=== PATIENT | female | born 1950 | race Caucasian/White ===

== ENCOUNTER → 2017-11-09 08:24 | Outpatient (CLI) | payer MEDICARE, OTHER, SELFPAY ==
[2017-11-09 10:39] LABS: Alanine Aminotransferase 40 IU/L (9-52); Albumin 3.8 g/dL (3.5-5.0); Albumin Globulin Ratio 1.4 (1.0-2.8); Alkaline Phosphatase 105 U/L (38-126); Aspartate Aminotransferase 23 IU/L (14-36); Bilirubin Total 0.7 mg/dL (0.2-1.3); Blood Urea Nitrogen 18 mg/dL (7-17); Calcium 9.5 mg/dL (8.4-10.2); Carbon Dioxide 31 mmol/L (22-32); Chloride 98 mmol/L (98-107); Cholesterol 164 mg/dL (140-199); Estimated Glomerular Filt Rate > 60.0 mL/min (>60); Globulin 2.7 g/dL (1.7-4.1); Glucose 276 mg/dL (80-110); HDL Cholesterol 68 mg/dL (40-60); HEMOLYSIS < 15 (0-50); LDL Cholesterol Calculated 81 mg/dL (<100); Potassium 4.5 mmol/L (3.4-5.1); Sodium 137 mmol/L (137-145); Total Protein 6.5 g/dL (6.3-8.2); Triglycerides 76 mg/dL (35-150)
[2017-11-09 10:41] LABS: Hemoglobin A1C% w Est Avg Glu 8.4 % (4.0-6.0)
[2017-11-09 11:32] LABS: Creatinine Urine Random 76.8 mg/dL
[2017-11-09 11:36] LABS: Microalbumi Creatinin Ratio Ur 41.6 ug/mg CR (<30); Microalbumin Urine Random 3.2 mg/dL (0-1.6)
== END ==
PROVIDERS: Family Provider Physician Assistant; PCP Physician Assistant; Visit Provider Physician Assistant
DX: E10.8 Type 1 diabetes mellitus with unspecified complications (principal); E10.319 Type 1 diabetes mellitus with unspecified diabetic retinopathy without macular edema; I10 Essential (primary) hypertension; E78.5 Hyperlipidemia, unspecified
CPT/HCPCS: 36415; 80053; 80061; 82043; 82570; 83036

== ENCOUNTER → 2018-04-14 12:14 | Outpatient (CLI) | payer MEDICARE, OTHER, SELFPAY ==
[2018-04-14 13:30] LABS: BUN Creatinine Ratio 23.3 (6-22); Blood Urea Nitrogen 21 mg/dL (7-17); Calcium 9.6 mg/dL (8.4-10.2); Carbon Dioxide 27 mmol/L (22-32); Chloride 97 mmol/L (98-107); Estimated Glomerular Filt Rate > 60.0 mL/min (>60); Glucose 250 mg/dL (80-110); HEMOLYSIS < 15 (0-50); Sodium 138 mmol/L (137-145)
[2018-04-14 13:49] LABS: Potassium 5.6 mmol/L (3.4-5.1)
[2018-04-14 15:51] LABS: Creatinine Urine Random 59.3 mg/dL
[2018-04-14 15:55] LABS: Microalbumi Creatinin Ratio Ur 35.4 ug/mg CR (<30); Microalbumin Urine Random 2.1 mg/dL (0-1.6)
== END ==
PROVIDERS: Family Provider Internal Medicine Endocrinology, Diabetes & Metabolism; PCP Physician Assistant; Visit Provider Physician Assistant
DX: E10.8 Type 1 diabetes mellitus with unspecified complications (principal); I10 Essential (primary) hypertension
CPT/HCPCS: 36415; 80048; 82043; 82570

== ENCOUNTER → 2018-06-19 09:27 | Outpatient (CLI) | payer MEDICARE, OTHER, SELFPAY ==
--- NOTE | 2018-06-19 09:32 | DI.CT.S_ITS ---
PROCEDURE: CT CHEST WO CON INDICATIONS: 1 year follow up pulmonary nodules TECHNIQUE: Noncontrast 2.0-2.5 mm thick sections acquired from the pulmonary apices to the posterior costophrenic angles. 7 mm thick coronal and sagittal MIP reformats were then acquired. A low radiation dose technique was utilized. COMPARISON: [facility], CT, THORAX WITHOUT CONTRAST, 06/20/2017, 10:05. FINDINGS: Image quality: Diagnostic, given the low radiation dose technique. Lungs and pleura: A 3 mm nodule in the right upper lobe (there is 2 image 56) is unchanged. There is a 6 mm nodule in the right lower lobe (image 2 image 105), unchanged in size. There is a 2 mm nodule in the right upper lobe (series 2 image 54), which is new. A 3 mm nodule is noted in the left upper lobe (series 2 image 59), stable. A couple of 4 mm nodules are noted in the lingula (series 2 image 101), also stable. Mediastinum: Heart size is normal. No pericardial effusion. No mediastinal adenopathy by size criteria. Thoracic aorta and central pulmonary arteries are normal in size. Esophagus is normal in caliber. No hiatal hernia. Bones and chest wall: No suspicious bony lesions. No vertebral body compression fractures. No axillary or supraclavicular adenopathy by size criteria. Thyroid gland is normal. Abdomen: Visualized upper abdomen solid organs and bowel loops appear normal in the absence of contrast. IMPRESSION: 1. Multiple pulmonary nodules are present bilaterally, stable compared to the last exam dated 06/20/2017. Please see enclosed followup recommendation. 2. There is a new 2 mm nodule in the right upper lobe. Fleischner Society criteria for SOLID lung nodule followup. Nodule size (mm)Low-risk patientHigh-risk patient<6 (single or multiple)No routine followup.Optional CT at 12 months. 6-8 (single or multiple)CT at 6-12 months, then optional CT at 18-24 mo.CT at 6-12 months, then CT at 18-24 months. >8 (single)CT at 3 months, PET-CT, or biopsy. Same as for low-risk pts. >8 (multiple)CT at 3-6 months, then optional CT at 18-24 mo.CT at 3-6 months, then CT at 18-24 months. Recommendations do not apply to lung cancer screening, patients with immunosuppression, or patients with known primary cancer. Dictated by: Amy Tate M.D. on 06/19/2018 at 10:58 Approved by: Amy Tate M.D. on 06/19/2018 at 11:06
== END ==
PROVIDERS: Family Provider Internal Medicine Endocrinology, Diabetes & Metabolism; PCP Physician Assistant; Visit Provider Physician Assistant
DX: R91.8 Other nonspecific abnormal finding of lung field (principal)
CPT/HCPCS: 71250

== ENCOUNTER → 2018-08-10 08:32 | Outpatient (CLI) | payer MEDICARE, OTHER, SELFPAY ==
[2018-08-10 09:40] LABS: BUN Creatinine Ratio 18.8 (6-22); Blood Urea Nitrogen 15 mg/dL (7-17); Calcium 8.9 mg/dL (8.4-10.2); Carbon Dioxide 27 mmol/L (22-32); Chloride 106 mmol/L (98-107); Estimated Glomerular Filt Rate > 60.0 mL/min (>60); Glucose 181 mg/dL (80-110); HEMOLYSIS < 15 (0-50); Potassium 4.4 mmol/L (3.4-5.1); Sodium 142 mmol/L (137-145)
== END ==
PROVIDERS: PCP Physician Assistant; Visit Provider Physician Assistant
DX: E10.8 Type 1 diabetes mellitus with unspecified complications (principal); E87.5 Hyperkalemia; I10 Essential (primary) hypertension
CPT/HCPCS: 36415; 80048

== ENCOUNTER 2018-08-20 02:12 | Emergency (ER) | payer MEDICARE, OTHER, SELFPAY ==
--- NOTE | 2018-08-20 02:17 | ED.GENADULT ---
HPI - General Adult General Chief complaint: Headache Stated complaint: brain about to explode today Time Seen by Provider: 08/20/18 02:17 Source: patient Mode of arrival: ambulatory Limitations: no limitations History of Present Illness HPI narrative: Patient is a 68-year-old female here for evaluation of headache. She described it as a right-sided posterior headache. No trauma. she states that she started to feel her head hurt in the afternoon. Did not think much of it however couple hours ago the headache worsened. She denies any fevers. No trauma. No other neurologic symptoms. She states she has had headaches in the past but this feels different to her prior headaches. She states that it is right-sided in the back and is throbbing. She states that it is worse when she moves her head to the side and potentially worse with touching the back of her head. No recent upper respiratory infections. no recent sore throat. has not tried anything for symptoms prior to arrival. She has not taken her night dose of blood pressure medication Related Data Home Medications Medication Instructions Recorded Confirmed [BATAXOLOL OPHTHALMIC] 0.5 % OPHTH BID #0 06/01/17 03/21/18 [CALCIUM] PO QDAY #0 06/01/17 03/21/18 [NOVOLOG THRU PUMP] 60 - 80 units SEE INSTRUCTIONS #0 06/01/17 03/21/18 aspirin 81 mg PO QDAY #0 06/01/17 03/21/18 latanoprost [Xalatan] 1 drp OPHTH HS #0 06/01/17 03/21/18 loratadine-pseudoephedrine 1 tab PO QDAYP PRN #0 06/01/17 03/21/18 [Claritin-D 24 Hour] omeprazole 20 mg PO QDAY #0 06/01/17 03/21/18 multivitamin chewable tablet See Rx Instructions PO DAILY 11/16/17 03/21/18 Previous Rx's Medication Instructions Recorded carvedilol [Coreg] 12.5 mg PO BID #180 tab 06/27/17 pneumococcal 13-nanette conj 0.5 ml IM ONCE #0.5 ml 03/21/18 vaccine-dip crm (PF) 0.5 mL IM syringe varicella-zoster glycoE [id number] 0.5 ml IM ONCE #1 each 03/21/18 adj(PF) 50 mcg/0.5 mL IM susp, kit atorvastatin 40 mg tablet 40 mg PO BEDTIME #90 tab 06/26/18 furosemide 20 mg tablet 20 mg PO BID #180 tab 06/26/18 lisinopril 40 mg tablet 40 mg PO QDAY #90 tab 06/26/18 Allergies Allergy/AdvReac Type Severity Reaction Status Date / Time amoxicillin [AMOXICILLIN] Allergy Severe SWELLING Verified 03/21/18 08:53 IN LIPS AND MOUTH aspirin [ASPIRIN] AdvReac Mild (HIGH Verified 03/21/18 08:53 DOSES) HIVES Review of Systems Constitutional Denies fatigue, Denies fever(s) and Reports headache(s) Eyes Denies blind spots, Denies blurry vision and Denies loss of vision ENT Ears, Nose, Mouth, and Throat: Denies vertigo, Denies dizziness, Denies dry mouth, Denies facial pain, Reports headache(s), Reports neck pain (Right-sided posterior), Denies disequilibrium and Denies sore throat Cardiovascular Denies chest pain and Denies dyspnea Respiratory Denies dyspnea Gastrointestinal Gastrointestinal: Denies abdominal pain, Denies nausea and Denies vomiting Musculoskeletal Denies myalgias, Denies arthralgias, Reports neck pain (Right-sided posterior), Denies numbness and Denies tingling Integumentary/Breasts Denies rash Neurologic Denies confusion, Denies vertigo, Denies dizziness, Reports headache(s), Denies focal weakness, Denies loss of vision, Denies numbness, Denies other visual disturbances, Denies convulsions, Denies sensory deficit, Denies tingling, Denies paresthesias and Denies disequilibrium Psychiatric Denies confusion Endocrine Denies fatigue Hematologic/Lymphatic Denies easy bleeding and Denies easy bruising Allergic/Immunologic Denies urticaria [facility] Medical History Allergic rhinitis (Chronic Unknown) Diabetic retinopathy (Chronic 2007) Diverticular disease (Chronic 2015) Glaucoma (Chronic 1984) Hemorrhoids (Chronic 1972) Hypertension (Chronic ~1999) Mild acid reflux (Chronic 2005) Osteopenia (Chronic 2010) Recurrent sinusitis (Chronic Unknown) Type 1 diabetes (Chronic 1977) Abnormal chest x-ray (Resolved 2015) Colon polyps (Resolved 2004) Hepatitis B (Resolved 1972) History of trigger finger (Resolved ~2008) Measles (Resolved ~1958) Mumps (Resolved ~1959) Pneumonia (Resolved 2009) Uterine fibroid (Resolved 1994) Surgical History (Updated 08/30/17 @ 06:14 by Gretchen Ta PA-C) Status post hysterectomy Status post tubal ligation Family History (Updated 06/01/17 @ 00:00 by Gretchen Ta PA-C) Father History of diabetes mellitus, type I Mother History of diabetes mellitus, type II History of heart disease Sister History of diabetes mellitus, type II Grandfather No problems noted. Grandmother No problems noted. Grandmother No problems noted. Social History Smoking Status: Never smoker second hand exposure: No alcohol intake: current (1 to 2 glasses of wine almost nightly.) substance use type: does not use Family History (Updated 06/01/17 @ 00:00 by Gretchen Ta PA-C) Father History of diabetes mellitus, type I Mother History of diabetes mellitus, type II History of heart disease Sister History of diabetes mellitus, type II Grandfather No problems noted. Grandmother No problems noted. Grandmother No problems noted. Social History Smoking Status: Never smoker second hand exposure: No alcohol intake: current (1 to 2 glasses of wine almost nightly.) substance use type: does not use Exam Initial Vital Signs Initial Vital Signs: Vital Signs Temperature 98.0 F 08/20/18 02:20 Pulse Rate 59 L 08/20/18 02:20 Respiratory Rate 18 08/20/18 02:20 Blood Pressure 225/97 H 08/20/18 02:20 Pulse Oximetry 97 08/20/18 02:20 Const General: cooperative, No comfortable (Uncomfortable), well developed, well groomed and No acute distress Orientation: alert, awake and oriented x3 HENMT Head: normal to inspection and normocephalic Nose: external nose normal Face and sinus: normal facial exam Eyes Pupils: PERRL EOM: EOM intact bilaterally Resp Effort & Inspection: normal respiratory effort Auscultation: clear to auscultation bilaterally Cardio Rate: regular rate Rhythm: regular rhythm GI Inspection: non-distended Skin Lesions: no lesions Rashes: no rashes Neuro General: alert, awake, oriented x3, tone normal, moves all extremities, no meningeal signs, no focal motor deficits and not confused Cranial Nerves: CN's II-XI intact bilaterally, PERRL and hearing normal Cognition: normal cognition Speech: speech normal Gait: normal gait Motor: muscle tone normal throughout Sensory Exam: no sensory deficits noted Extrem General: normal to inspection and capillary refill normal Psych Appearance: grossly normal and well kempt Affect: normal affect Course Orders Ordered: ED Orders 08/20/18 02:24 EKG-12 Lead Stat 08/20/18 02:25 Basic Metabolic Panel Stat Complete Blood Count AUTO DIFF Stat Partial Thromboplastin Time Stat Prothrombin Time INR Stat 08/20/18 02:46 CT head/brain wo con Stat Discontinued Medications Acetaminophen (Tylenol) 975 mg PO NOW ONE Stop: 08/20/18 02:45 Last Admin: 08/20/18 02:55 Dose: 975 mg Carvedilol (Coreg) 12.5 mg PO NOW ONE Stop: 08/20/18 02:45 Last Admin: 08/20/18 03:04 Dose: 12.5 mg Cyclobenzaprine HCl (Flexeril 10 Mg Prepack) 1 bottle MISC SEEINSTR ONE Stop: 08/20/18 04:53 Last Admin: 08/20/18 05:01 Dose: 1 bottle Cyclobenzaprine HCl (Flexeril) 10 mg PO NOW ONE Stop: 08/20/18 04:53 Last Admin: 08/20/18 05:02 Dose: 10 mg Diphenhydramine HCl (Benadryl) 25 mg IV NOW ONE Stop: 08/20/18 02:45 Last Admin: 08/20/18 02:54 Dose: 25 mg Lisinopril (Zestril) 40 mg PO NOW ONE Stop: 08/20/18 02:45 Last Admin: 08/20/18 03:03 Dose: 40 mg Metoclopramide HCl (Reglan) 10 mg IV NOW ONE Stop: 08/20/18 02:45 Last Admin: 08/20/18 02:54 Dose: 10 mg Vital Signs - 8 hr 08/20/18 02:20 08/20/18 03:42 Temperature 98.0 F Pulse Rate 59 L 62 Respiratory Rate 18 14 Blood Pressure 225/97 H Blood Pressure [Left Arm] 173/72 H Pulse Oximetry 97 95 Medical Decision Making Medical Records Medical records reviewed: Yes I reviewed the patient's medical records. Lab Data Lab results reviewed: Yes I reviewed the patient's lab results. Result diagrams: 08/20/18 02:25 08/20/18 02:25 Lab Results 08/20/18 08/20/18 08/20/18 Range/Units 02:25 02:25 02:25 WBC 9.4 (4.5-11.0) X10^3/uL RBC 4.48 (4.0-5.2) X10^6/uL Hgb 14.1 (12.0-16.0) g/dL Hct 42.2 (36-46) % MCV 94.3 (80-100) fL MCH 31.6 (26-34) PG MCHC 33.5 (30-36) % RDW 13.3 (11.6-14.8) % Plt Count 271 (150-400) X10^3/uL Neut % (Auto) 66.7 (50-75) % Lymph % (Auto) 20.4 L (25-40) % [place] % (Auto) 7.3 (3-14) % Eos % (Auto) 4.8 H (2-4) % Baso % (Auto) 0.8 (0-2) % Neut # (Auto) 6300 (4033-0183) /uL Lymph # (Auto) 1900 (1592-7121) /uL [place] # (Auto) 700 (0-900) /uL Eos # (Auto) 500 H (0-450) /uL Baso # (Auto) 100 (0-100) /uL PT 10.6 (10.1-12.7) SECONDS INR 0.9 (0.9-1.3) APTT 29 (26.4-36.2) SECONDS Sodium 140 (137-145) mmol/L Potassium 4.1 (3.4-5.1) mmol/L Chloride 103 (98-107) mmol/L Carbon Dioxide 27 (22-32) mmol/L BUN 16 (7-17) mg/dL Creatinine 0.90 (0.52-1.04) mg/dL Estimated GFR > 60.0 (>60) mL/min BUN/Creatinine Ratio 17.8 (6-22) Glucose 145 H (80-110) mg/dL Calcium 9.6 (8.4-10.2) mg/dL Imaging Data CT scan - head: Radiologist's impression: No acute intracranial abnormalities ECG Data Attestation: I personally reviewed and interpreted this ECG as follows: Prior ECG tracings: not available for review Interpretation: Sinus rhythm Ventricular rate is 60 Normal axis Normal QRS Nonspecific ST T wave changes MDM Narrative Medical decision making narrative: Patient arrived hypertensive and with the headache. she was given her night dose of blood pressure medication along with Tylenol along with quite seclusion along with Reglan and Benadryl. This did improve her blood pressure is significantly. Her headache also improved during this time period her head CT was unremarkable. This head CT was performed within 6 hours of the worsening of her headache however there is a question whether not it was within 6 hours of the onset of the headache. Her hematocrit was greater than 30. Her headache was right-sided posterior and somewhat reproducible with palpation. She had no fevers. Had low suspicion for meningitis. No trauma. No masses on the head CT. We had a long discussion with her at bedside regarding her symptoms. we did discuss the head CT and the timing of the head CT. We did discuss the concerns for intracranial hemorrhage. We discussed the lumbar puncture as a potential next step in further evaluation we did discuss that since the head CT was potentially not done within 6 hours of the onset of the symptoms that a lumbar puncture would further complete the workup to rule out a subarachnoid hemorrhage. patient expressed understanding of this. She opted not to have the lumbar puncture performed. We also discussed that lumbar puncture would also evaluate for meningitis however I feel given the physical exam and the lack of fever that this is an unlikely etiology. We also discussed that since her headache is somewhat reproducible with palpation and right-sided occipital region that this could be a tension headache. she was given a Flexeril here in the emergency department in a prepack for Flexeril. She was given strict return precautions. She was going to contact her primary doctor on Tuesday for follow-up. Both her and her expressed understanding and agreement with plan. Discharge Plan Departure Patient Disposition: Home Clinical Impression: Headache Qualifiers: Headache type: unspecified Headache chronicity pattern: unspecified pattern Intractability: not intractable Qualified Code(s): R51 - Headache Hypertension Qualifiers: Hypertension type: unspecified Qualified Code(s): I10 - Essential (primary) hypertension Instructions: DI for Headache Activity Restrictions/Additional Instructions: You do need to continue all of your high blood pressure medications. After our discussion here in the emergency department you opted not to have a lumbar puncture. If her symptoms worsen, you develop new symptoms to include vision problems, balance issues or any other neurologic problems please return to the emergency department immediately for further evaluation. If you also develop fevers or worsening neck pain please return to the emergency department. On Tuesday morning contact her primary care doctor for a follow-up. Prescriptions: No Action multivitamin tablet,chewable See Patient Comments PO DAILY RF: 0 pneumoc 13-nanette conj-dip cr(PF) [Prevnar 13 (PF)] 0.5 mL syringe 0.5 ml IM ONCE Qty: 0.5 RF: 0 varicella-zoster [id number] (PF) [Shingrix (PF)] 50 mcg/0.5 mL suspension for reconstitution 0.5 ml IM ONCE Qty: 1 RF: 1 aspirin 81 MG tablet,delayed release (DR/EC) 81 mg PO QDAY Qty: 0 RF: 0 [BATAXOLOL OPHTHALMIC] 0.5 % OPHTH BID Qty: 0 RF: 0 latanoprost [Xalatan] 0.005 % drops 1 drp OPHTH HS Qty: 0 RF: 0 omeprazole 20 MG tablet,delayed release (DR/EC) 20 mg PO QDAY Qty: 0 RF: 0 [NOVOLOG THRU PUMP] 60 - 80 units SEE INSTRUCTIONS Qty: 0 RF: 0 [CALCIUM] PO QDAY Qty: 0 RF: 0 loratadine-pseudoephedrine [Claritin-D 24 Hour] 10 MG/240 MG tablet extended release 24 hr 1 tab PO QDAYP PRNQty: 0 RF: 0 carvedilol [Coreg] 12.5 MG tablet 12.5 mg PO BID Qty: 180 RF: 3 atorvastatin 40 mg tablet 40 mg PO BEDTIME Qty: 90 RF: 1 furosemide [Lasix] 20 mg tablet 20 mg PO BID Qty: 180 RF: 1 lisinopril 40 mg tablet 40 mg PO QDAY Qty: 90 RF: 1 Referrals: Gretchen Ta PA-C [Primary Care Provider] -
[2018-08-20 02:20] VITALS: BP 225/97; PULSE 59; RESP 18; TEMP 36.7; O2SAT 97; BMI 31.8
--- NOTE | 2018-08-20 02:46 | DI.CT.S_ITS ---
PROCEDURE: CT HEAD/BRAIN WO CON INDICATIONS: Right posterior headache TECHNIQUE: Noncontrast 4.5 mm thick angled axial sections acquired from the foramen magnum to the vertex, with coronal and sagittal reformats. For radiation dose reduction, the following was used: automated exposure control, adjustment of mA and/or kV according to patient size. COMPARISON: None. FINDINGS: Image quality: Excellent. CSF spaces: Basal cisterns are patent. No extra-axial fluid collections. Ventricles are normal in size and shape. Brain: No midline shift. No intracranial masses or hemorrhage. No acute stroke. Merritt-white matter interface is normal. Skull and face: Calvarium and visualized facial bones are intact, without suspicious lesions. Sinuses: Visualized sinuses and mastoids are clear. IMPRESSION: Negative head CT with no evidence of acute stroke, hemorrhage, or mass. Comment: Final report is concordant with preliminary interpretation. Dictated by: Braden Justice M.D. on 08/20/2018 at 8:31 Approved by: Braden Justice M.D. on 08/20/2018 at 8:31
[2018-08-20 02:50] LABS: Add Manual Diff / Slide Review NO; Basophils Absolute Auto 100 /uL (0-100); Basophils Percent Auto 0.8 % (0-2); Eosinophils Absolute Auto 500 /uL (0-450); Eosinophils Percent Auto 4.8 % (2-4); Hematocrit 42.2 % (36-46); Hemoglobin 14.1 g/dL (12.0-16.0); Lymphocytes Absolute Auto 1900 /uL (1100-4500); Lymphocytes Percent Auto 20.4 % (25-40); Mean Corpuscular HGB Conc 33.5 % (30-36); Mean Corpuscular Hemoglobin 31.6 PG (26-34); Mean Corpuscular Volume 94.3 fL (80-100); Monocytes Absolute Auto 700 /uL (0-900); Monocytes Percent Auto 7.3 % (3-14); Neutrophils Absolute Auto 6300 /uL (1500-7000); Neutrophils Percent Auto 66.7 % (50-75); Platelet Count 271 X10^3/uL (150-400); Red Blood Cell Count 4.48 X10^6/uL (4.0-5.2); Red Cell Distribution Width 13.3 % (11.6-14.8); White Blood Cell Count 9.4 X10^3/uL (4.5-11.0)
[2018-08-20] MEDS: diphenhydrAMINE 50 MG/ML VIAL 25 MG IV (02:54)
[2018-08-20] MEDS: METOCLOPRAMIDE 10 MG/2 ML INJ IV (02:54)
[2018-08-20] MEDS: ACETAMINOPHEN 325 MG TABLET 975 MG PO (02:55)
[2018-08-20 02:59] LABS: INR 0.9 (0.9-1.3); Prothrombin Time 10.6 SECONDS (10.1-12.7)
[2018-08-20 03:00] LABS: BUN Creatinine Ratio 17.8 (6-22); Blood Urea Nitrogen 16 mg/dL (7-17); Calcium 9.6 mg/dL (8.4-10.2); Carbon Dioxide 27 mmol/L (22-32); Chloride 103 mmol/L (98-107); Estimated Glomerular Filt Rate > 60.0 mL/min (>60); Glucose 145 mg/dL (80-110); HEMOLYSIS < 15 (0-50); Potassium 4.1 mmol/L (3.4-5.1); Sodium 140 mmol/L (137-145)
[2018-08-20 03:01] LABS: PTT Partial Thromboplastin Tim 29 SECONDS (26.4-36.2)
[2018-08-20] MEDS: LISINOPRIL 20 MG TABLET 40 MG PO (03:03)
[2018-08-20] MEDS: CARVEDILOL 12.5 MG TABLET PO (03:04)
[2018-08-20 03:42] VITALS: BP 173/72; PULSE 62; RESP 14; O2SAT 95
[2018-08-20 04:30] VITALS: BP 160/63; PULSE 60; RESP 15; O2SAT 96
[2018-08-20] MEDS: CYCLOBENZAPRINE 10 MG PREPACK 1 BOTTLE MISC (05:01)
[2018-08-20] MEDS: CYCLOBENZAPRINE 10 MG TABLET PO (05:02)
[2018-08-20 05:11] VITALS: BP 156/59; PULSE 57; RESP 17; O2SAT 96
== END 2018-08-20 05:13 | disposition home or self-care (01) ==
PROVIDERS: Emergency Provider Emergency Medicine; PCP Physician Assistant
DX: R51 Headache (principal); I10 Essential (primary) hypertension; M54.2 Cervicalgia
CPT/HCPCS: 36591; 70450; 80048; 85025; 85610; 85730; 93005; 96374; 96375; 99282; 99285; J1200; J2765

== ENCOUNTER → 2018-08-28 13:20 | Outpatient (CLI) | payer MEDICARE, OTHER, SELFPAY ==
--- NOTE | 2018-08-28 13:21 | DI.MG.S_ITS ---
BILATERAL DIGITAL SCREENING MAMMOGRAM 3D/2D WITH CAD: 08/28/2018 CLINICAL: Routine screening. Comparison is made to exams dated: 07/01/2016 mammogram and 09/24/2010 mammogram - [facility]. There are scattered fibroglandular elements in both breasts. Current study was also evaluated with a Computer Aided Detection (CAD) system. There are benign calcifications in both breasts. No significant masses, calcifications, or other findings are seen in either breast. There has been no significant interval change. IMPRESSION: There is no mammographic evidence of malignancy. A 1 year screening mammogram is recommended. This exam was interpreted at Station ID: [id number]. NOTE: For mammograms, a report in lay terms will be sent to the patient. Approximately 15% of breast malignancies will not be visualized mammographically. In the management of a palpable breast mass, a negative mammogram must not discourage biopsy of a clinically suspicious lesion. Electronically Signed By: Basasm [email or web address]/lokesh:08/28/2018 16:54:29 letter sent: Normal Exam ACR BI-RADS Category 2: Benign Finding(s) 3342F
== END ==
PROVIDERS: PCP Physician Assistant; Visit Provider Physician Assistant
DX: Z12.31 Encounter for screening mammogram for malignant neoplasm of breast (principal)
CPT/HCPCS: 77063; 77067

== ENCOUNTER → 2018-09-14 08:43 | Outpatient (CLI) | payer MEDICARE, OTHER, SELFPAY ==
[2018-09-14 09:33] LABS: Hemoglobin A1C% w Est Avg Glu 7.4 % (4.0-6.0)
[2018-09-14 10:47] LABS: Creatinine Urine Random 95.1 mg/dL
[2018-09-14 10:52] LABS: Microalbumi Creatinin Ratio Ur 72.5 ug/mg CR (<30); Microalbumin Urine Random 6.9 mg/dL (0-1.6)
== END ==
PROVIDERS: Family Provider Physician Assistant; PCP Physician Assistant; Visit Provider Internal Medicine Endocrinology, Diabetes & Metabolism
DX: E10.3593 Type 1 diabetes mellitus with proliferative diabetic retinopathy without macular edema, bilateral (principal)
CPT/HCPCS: 36415; 82043; 82570; 83036

== ENCOUNTER → 2019-03-30 09:17 | Outpatient (CLI) | payer MEDICARE, OTHER, SELFPAY ==
[2019-03-30 10:41] LABS: Alanine Aminotransferase 26 IU/L (<35); Albumin 4.2 g/dL (3.5-5.0); Albumin Globulin Ratio 1.4 (1.0-2.8); Alkaline Phosphatase 99 U/L (38-126); Aspartate Aminotransferase 29 IU/L (14-36); BUN Creatinine Ratio 18.9 (6-22); Bilirubin Total 0.8 mg/dL (0.2-1.3); Blood Urea Nitrogen 17 mg/dL (7-17); Calcium 9.4 mg/dL (8.4-10.2); Carbon Dioxide 30 mmol/L (22-32); Chloride 103 mmol/L (98-107); Cholesterol 169 mg/dL (140-199); Estimated Glomerular Filt Rate > 60.0 mL/min (>60); Globulin 2.9 g/dL (1.7-4.1); Glucose 214 mg/dL (80-110); HDL Cholesterol 57 mg/dL (40-60); HEMOLYSIS < 15 (0-50); LDL Cholesterol Calculated 95 mg/dL (<100); Potassium 4.1 mmol/L (3.4-5.1); Sodium 141 mmol/L (137-145); Total Protein 7.1 g/dL (6.3-8.2); Triglycerides 84 mg/dL (35-150)
[2019-03-30 10:47] LABS: Creatinine Urine Random 91.1 mg/dL
[2019-03-30 10:51] LABS: Microalbumi Creatinin Ratio Ur 171.2 ug/mg CR (<30); Microalbumin Urine Random 15.6 mg/dL (0-1.6)
== END ==
PROVIDERS: PCP Physician Assistant; Visit Provider Physician Assistant
DX: E78.5 Hyperlipidemia, unspecified (principal); I10 Essential (primary) hypertension
CPT/HCPCS: 36415; 80053; 80061; 82043; 82570

== ENCOUNTER → 2019-10-02 09:49 | Outpatient (CLI) | payer MEDICARE, OTHER, SELFPAY ==
[2019-10-02 12:01] LABS: Hemoglobin A1C% w Est Avg Glu 7.5 % (4.0-6.0)
[2019-10-02 12:05] LABS: Alanine Aminotransferase 30 IU/L (<35); Albumin 4.2 g/dL (3.5-5.0); Albumin Globulin Ratio 1.4 (1.0-2.8); Alkaline Phosphatase 93 U/L (38-126); Aspartate Aminotransferase 36 IU/L (14-36); BUN Creatinine Ratio 20.6 (6-22); Bilirubin Total 0.5 mg/dL (0.2-1.3); Blood Urea Nitrogen 21 mg/dL (7-17); Calcium 9.2 mg/dL (8.4-10.2); Carbon Dioxide 27 mmol/L (22-32); Chloride 102 mmol/L (98-107); Cholesterol 169 mg/dL (140-199); Estimated Glomerular Filt Rate 53.7 mL/min (>60); Globulin 3.1 g/dL (1.7-4.1); Glucose 161 mg/dL (80-110); HDL Cholesterol 66 mg/dL (40-60); HEMOLYSIS < 15 (0-50); LDL Cholesterol Calculated 82 mg/dL (<100); Potassium 4.5 mmol/L (3.4-5.1); Sodium 139 mmol/L (137-145); Total Protein 7.3 g/dL (6.3-8.2); Triglycerides 105 mg/dL (35-150)
[2019-10-02 12:36] LABS: Free T3, Triiodothyronine Free 3.26 pg/mL (2.77-5.27); Free T4, Direct Thyroxine 0.97 ng/dL (0.78-2.19)
[2019-10-02 12:48] LABS: Creatinine Urine Random 57.9 mg/dL
[2019-10-02 12:50] LABS: Thyroid Stimulating Hormone 2.84 uIU/mL (0.47-4.68)
[2019-10-02 12:53] LABS: Microalbumi Creatinin Ratio Ur 91.5 ug/mg CR (<30); Microalbumin Urine Random 5.3 mg/dL (0-1.6)
== END ==
PROVIDERS: PCP Nurse Practitioner; Referring Provider Internal Medicine; Visit Provider Internal Medicine
DX: E10.8 Type 1 diabetes mellitus with unspecified complications (principal); E78.5 Hyperlipidemia, unspecified; I10 Essential (primary) hypertension; Z79.899 Other long term (current) drug therapy
CPT/HCPCS: 36415; 80053; 80061; 82043; 82570; 83036; 84439; 84443; 84481

== ENCOUNTER → 2019-11-25 10:40 | Outpatient (CLI) | payer MEDICARE, OTHER, SELFPAY ==
[2019-11-27 03:36] LABS: COVID19 Sendout Not Detected (Not Detected)
== END ==
PROVIDERS: PCP Nurse Practitioner; Visit Provider Physician Assistant
DX: R05 Cough (principal); R50.9 Fever, unspecified
CPT/HCPCS: 87635

== ENCOUNTER → 2019-12-12 15:05 | Outpatient (CLI) | payer MEDICARE, OTHER, SELFPAY ==
--- NOTE | 2019-12-12 15:07 | DI.MG.S_ITS ---
BILATERAL DIGITAL SCREENING MAMMOGRAM 3D/2D WITH CAD: 12/12/2019 CLINICAL: Routine screening. Comparison is made to exams dated: 08/28/2018 mammogram - [facility], 07/01/2016 mammogram, and 09/24/2010 mammogram - [facility]. There are scattered fibroglandular elements in both breasts. Current study was also evaluated with a Computer Aided Detection (CAD) system. There are benign calcifications in both breasts. No significant masses, calcifications, or other findings are seen in either breast. There has been no significant interval change. IMPRESSION: BENIGN There is no mammographic evidence of malignancy. A 1 year screening mammogram is recommended. This exam was interpreted at Station ID: [id number]. NOTE: For mammograms, a report in lay terms will be sent to the patient. Approximately 15% of breast malignancies will not be visualized mammographically. In the management of a palpable breast mass, a negative mammogram must not discourage biopsy of a clinically suspicious lesion. Electronically Signed By: Ba agustin/lokesh:12/12/2019 17:03:00 letter sent: Normal Exam ACR BI-RADS Category 2: Benign Finding(s) 3342F
== END ==
PROVIDERS: PCP Nurse Practitioner; Referring Provider Nurse Practitioner; Visit Provider Nurse Practitioner
DX: Z12.31 Encounter for screening mammogram for malignant neoplasm of breast (principal); M85.851 Other specified disorders of bone density and structure, right thigh; Z78.0 Asymptomatic menopausal state; E10.8 Type 1 diabetes mellitus with unspecified complications; E78.5 Hyperlipidemia, unspecified; I10 Essential (primary) hypertension; Z79.899 Other long term (current) drug therapy
CPT/HCPCS: 77063; 77067; 77080

== ENCOUNTER → 2020-01-08 10:13 | Outpatient (CLI) | payer MEDICARE, OTHER, SELFPAY ==
[2020-01-09 07:41] LABS: COVID19 Sendout Not Detected (Not Detect)
== END ==
PROVIDERS: PCP Nurse Practitioner; Visit Provider Nurse Practitioner
DX: Z11.59 Encounter for screening for other viral diseases (principal)
CPT/HCPCS: 87635

== ENCOUNTER 2020-01-11 08:54 | Day surgery (SDC) | payer MEDICARE, OTHER, SELFPAY ==
[2020-01-11] VITALS (7 sets, daily range): BP systolic 82–115; BP diastolic 47–60; PULSE 54–69; RESP 10–17; TEMP 35.7–36.1; O2SAT 91–93; BMI 32.9
--- NOTE | 2020-01-11 | PATH_ITS ---
[facility] Accession Number: [id number] . 01 Material submitted: . cecum - CECAL POLYPS AT 10CM . 01 Clinical history: . A: 2 CECAL POLYPS WITH COLD SNARE AT 10CM . 02 Diagnosis: Cecum, Polyps at 10 cm, Biopsy: Multiple fragments of tubular adenoma. MRV 01/15/2020 1401 Local . 02 Electronically signed: . Clover Kirby MD, Pathologist NPI- [id number] . 01 Gross description: . CECAL POLYPS AT 10CM: Received in formalin are multiple fragment(s) of hopkins, soft tissue measuring 1.0 x 0.6 x 0.3 cm in aggregate submitted entirely in 1 cassette(s) /QBJ 01/12/2020 0646 Local . 02 Pathologist provided ICD-10: D12.0 . 02 CPT . 795271 Performed at: 01 [facility] [address] [facility] [place], [place], [place] [id number] MD Jono Nevarez MD Phone: [phone] Performed at: 02 [facility] [address] [place], [place] [id number] MD Clover Kirby MD Phone: [phone]
--- NOTE | 2020-01-11 09:46 | P.HP_ITS ---
History of Present Illness History of Present Illness Date Patient Seen: 01/11/20 Time Patient Seen: 09:46 Chief complaint: SCREENING COLONOSCOPY Narrative: This is a 69-year-old woman with personal history of colon polyps. Her last colonoscopy was 5 years ago. She is here for follow-up colonoscopy. She denies any melena, hematochezia, unexplained weight loss, unexplained abdominal pain. She has multiple comorbidities including type 1 diabetes, and essential hypertension. She manages her blood sugar with an insulin pump. Her blood sugar was 279 this morning, and she has given herself a bolus on her pump as she normally does. She denies any hypoglycemic symptoms at this point. ROS: Thirteen system review is otherwise negative other than as mentioned below and in HPI. PE: GENERAL: Well groomed and cooperative. Appears stated age. Answers questions promptly and appropriately. Vital signs noted. HENT: Normocephalic, atraumatic. Hearing intact. EYES: Conjunctiva pink, sclera white, no periorbital swelling. CARDIOVASCULAR: Regular rate. No pedal edema. RESPIRATORY: Non-tachypneic, breathing comfortably on room air. GASTROINTESTINAL: Abdomen soft and non-distended GENITALURINARY: No flank tenderness. MUSCULOSKELETAL: Equal tone and mass bilaterally. SKIN: Warm, dry, soft, appropriate color for ethnicity. No other lesions, rashes, or wounds. NEURO: Alert and Oriented X 3. No gross sensory deficits, or cognitive issues. PSYCH: Appropriate affect and mood. Patient History Medical History Abnormal chest x-ray (Resolved 2015) Allergic rhinitis (Chronic Unknown) Colon polyps (Resolved 2004) Diabetic retinopathy (Chronic 2007) Diverticular disease (Chronic 2015) Glaucoma (Chronic 1984) Hemorrhoids (Chronic 1972) Hepatitis B (Resolved 1972) History of trigger finger (Resolved ~2008) Hypertension (Chronic ~1999) Measles (Resolved ~8) Mild acid reflux (Chronic 2005) Mumps (Resolved ~1959) Osteopenia (Chronic 2010) Other [facility] (current) drug therapy (Acute) Pneumonia (Resolved 2009) Recurrent sinusitis (Chronic Unknown) Seborrheic keratosis (Acute) Sinusitis (Acute) Type 1 diabetes (Chronic 1977) Uterine fibroid (Resolved 1994) Surgical History Status post hysterectomy Status post tubal ligation Family & Social History Family History Father History of diabetes mellitus, type I Mother History of diabetes mellitus, type II History of heart disease Sister History of diabetes mellitus, type II Grandfather No problems noted. Grandmother No problems noted. Grandmother No problems noted. Social History: household members spouse Tobacco & Substance use: Smoking Status Never smoker alcohol intake current alcohol intake frequency holiday/special occasion Substance Use Type does not use Meds Home Medications and Allergies Home Medications Medication Instructions Recorded Confirmed Type [BATAXOLOL OPHTHALMIC] 0.5 % OPHTH BID #0 06/01/17 01/11/20 History [NOVOLOG THRU PUMP] 60 - 80 units SEE INSTRUCTIONS #0 06/01/17 01/11/20 History aspirin 81 mg PO QDAY #0 06/01/17 01/11/20 History latanoprost [Xalatan] 1 drp OPHTH HS #0 06/01/17 01/11/20 History loratadine-pseudoephedrine 1 tab PO QDAYP PRN #0 06/01/17 01/11/20 History [Claritin-D 24 Hour] omeprazole 20 mg PO QDAY #0 06/01/17 01/11/20 History multivitamin See Rx Instructions PO DAILY 11/16/17 01/11/20 History Calcium Gummies See Rx Instructions .ROUTE .COMPLEX 08/21/18 01/11/20 History carvedilol 12.5 mg tablet 12.5 mg PO BID #180 tab 03/28/19 01/11/20 Rx furosemide 20 mg tablet 20 mg PO BID #180 tab 03/28/19 01/11/20 Rx lisinopril 40 mg tablet 40 mg PO QDAY #90 tab 03/28/19 01/11/20 Rx atorvastatin 40 mg tablet 40 mg PO BEDTIME #90 tab 06/29/19 11/25/19 Rx Allergies Allergy/AdvReac Type Severity Reaction Status Date / Time amoxicillin [AMOXICILLIN] Allergy Severe SWELLING Verified 01/11/20 09:05 IN LIPS AND MOUTH aspirin [ASPIRIN] AdvReac Mild (HIGH Verified 01/11/20 09:05 DOSES) HIVES Exam Vital Signs (past 8 hours): Oxygen Delivery Method Room Air Assessment & Plan Assessment & Plan narrative: Risks and benefits of screening colonoscopy and possible polypectomy were discussed with the patient including risk of bleeding, perforation, need for additional procedures, risks of anesthesia. The patient desires to proceed with the colonoscopy procedure. COVID-19 COVID-19 status: Negative Result date/Date tested (Pos, Neg/Pending): 01/08/20 Time Spent With Patient Time with patient: 15-24 minutes Quality VTE Deep Vein Thrombosis/Pulmonary Embolism Present on Admission: No
--- NOTE | 2020-01-11 09:49 | P.OP.ENDO_ITS ---
Operative Date/Time/Diagnoses Date of procedure: 01/11/20 Time of procedure: 09:49 Pre-op diagnosis: Personal history of colon polyps 5 years ago Procedure & Clinicians Study performed: Colonoscopy Procedural sedation performed by the endoscopist Polypectomy x2 with cold snare Same procedure as scheduled: Yes Indications: Personal history of colon polyps, due for follow-up surveillance colonoscopy Surgeon: Inga Valdez Procedure Notes SCOAP/Timeout: Performed Procedure in detail: The patient was brought to the room and placed in left lateral decubitus position with all bony prominences padded. A time-out was performed and then the patient was given procedural sedation starting with 2 mg of Versed and 100 mcg of fentanyl. Total of 3 mg of Versed and 150 micro g of fentanyl were given for the entire procedure. Vitals were monitored throughout the procedure and remained stable. Once adequately sedated, the procedure was begun. A rectal exam was performed revealing no abnormalities. The colonoscope was then introduced to the rectum and advanced to the cecum in the usual fashion. The cecum was identified by the appendiceal orifice, the mucosal tri- fold, and the ileocecal valve. Two moderate-sized adenomatous appearing polyps were seen in the cecum. They were both completely removed with cold snare and sent for pathology. The scope was then retracted while rotating side to side and examining each mucosal fold. Moderate to severe diverticulosis was seen through the descending and sigmoid colon. No signs of active diverticulitis were seen At the conclusion of the procedure retroflexion was performed and small grade 1-2 internal hemorrhoids without stigmata of bleeding were seen. The scope was then withdrawn from the rectum the procedure was concluded. The patient tolerated the procedure well and was transferred to the PACU in stable condition. Scope withdrawal time: 13 Sedation minutes: 21 Findings: diverticulosis and polyp (A 1 cm and a 5 mm polyps were removed with cold snare from the cecum) Specimen(s): other (Cecal polyp) Complications: none Impression: Moderate to severe diverticulosis, 2 moderate-sized adenomatous appearing polyps Post-procedure Recommendations: Colonscopy in 5 years (Depending on pathology results) and Other recommendation (Use of fiber supplement if possible to help reduce the formation of diverticula and the incidence of diverticulitis) Follow up: as needed Disposition: PACU
[2020-01-11] MEDS: MIDAZOLAM 5 MG/5 ML VIAL IV (09:52)
[2020-01-11] MEDS: fentaNYL 250 MCG/5 ML INJ IV (09:53)
== END 2020-01-11 11:05 | disposition home or self-care (01) ==
PROVIDERS: PCP Nurse Practitioner; Referring Provider Nurse Practitioner; Visit Provider Surgery
PROC: 0DJD8ZZ Inspection of Lower Intestinal Tract, Via Natural or Artificial Opening Endoscopic (ICD-10-PCS; CPT 45378; principal; 2020-01-11 10:00)
DX: Z12.11 Encounter for screening for malignant neoplasm of colon (principal); Z86.010 Personal history of colon polyps; K57.30 Diverticulosis of large intestine without perforation or abscess without bleeding; E10.9 Type 1 diabetes mellitus without complications; I10 Essential (primary) hypertension; Z79.4 Long term (current) use of insulin; K64.0 First degree hemorrhoids; D12.0 Benign neoplasm of cecum
CPT/HCPCS: 45380; 99152; J2250; J3010

== ENCOUNTER → 2020-03-18 12:50 | Outpatient (CLI) | payer MEDICARE, OTHER, SELFPAY ==
[2020-03-18 14:08] LABS: Hemoglobin A1C% w Est Avg Glu 7.9 % (4.0-6.0)
== END ==
PROVIDERS: PCP Nurse Practitioner; Referring Provider Internal Medicine; Visit Provider Internal Medicine
DX: E10.311 Type 1 diabetes mellitus with unspecified diabetic retinopathy with macular edema (principal)
CPT/HCPCS: 36415; 83036

== ENCOUNTER → 2020-06-19 10:15 | Outpatient (CLI) | payer MEDICARE, OTHER, SELFPAY ==
[2020-06-19 11:08] LABS: Hemoglobin A1C% w Est Avg Glu 7.7 % (4.0-6.0)
== END ==
PROVIDERS: PCP Nurse Practitioner; Referring Provider Internal Medicine; Visit Provider Internal Medicine
DX: E10.9 Type 1 diabetes mellitus without complications (principal)
CPT/HCPCS: 36415; 83036

== ENCOUNTER → 2020-07-11 08:58 | Outpatient (CLI) | payer MEDICARE, OTHER, SELFPAY ==
[2020-07-11] MEDS: COVID-19 VACC, Ad26(JANSSEN)/PF 0.5 ML IM (09:10)
== END ==
PROVIDERS: PCP Nurse Practitioner; Visit Provider Internal Medicine
DX: Z23 Encounter for immunization (principal)
CPT/HCPCS: 0031A; 91303

== ENCOUNTER → 2020-08-14 09:11 | Outpatient (CLI) | payer MEDICARE, OTHER, SELFPAY ==
[2020-08-14 10:45] LABS: Alanine Aminotransferase 26 IU/L (<35); Albumin 4.1 g/dL (3.5-5.0); Albumin Globulin Ratio 1.4 (1.0-2.8); Alkaline Phosphatase 97 U/L (38-126); Aspartate Aminotransferase 27 IU/L (14-36); BUN Creatinine Ratio 25.8 (6-22); Bilirubin Total 0.5 mg/dL (0.2-1.3); Blood Urea Nitrogen 25 mg/dL (7-17); Calcium 9.5 mg/dL (8.4-10.2); Carbon Dioxide 27 mmol/L (22-32); Chloride 102 mmol/L (98-107); Cholesterol 175 mg/dL (140-199); Estimated Glomerular Filt Rate 56.8 mL/min (>60); Glucose 240 mg/dL (80-110); HDL Cholesterol 58 mg/dL (40-60); HEMOLYSIS < 15 (0-50); LDL Cholesterol Calculated 98 mg/dL (<100); Potassium 4.2 mmol/L (3.4-5.1); Sodium 136 mmol/L (137-145); Total Protein 7.1 g/dL (6.3-8.2); Triglycerides 96 mg/dL (35-150)
[2020-08-14 11:15] LABS: Thyroid Stimulating Hormone 2.25 uIU/mL (0.47-4.68)
[2020-08-14 12:11] LABS: Creatinine Urine Random 90.1 mg/dL
[2020-08-14 12:15] LABS: Microalbumi Creatinin Ratio Ur 58.8 ug/mg CR (<30); Microalbumin Urine Random 5.3 mg/dL (0-1.6)
== END ==
PROVIDERS: PCP Nurse Practitioner; Referring Provider Nurse Practitioner; Visit Provider Nurse Practitioner
DX: E10.319 Type 1 diabetes mellitus with unspecified diabetic retinopathy without macular edema (principal); E78.5 Hyperlipidemia, unspecified; I10 Essential (primary) hypertension; Z79.899 Other long term (current) drug therapy
CPT/HCPCS: 36415; 80053; 80061; 82043; 82570; 84443

== ENCOUNTER → 2020-08-18 13:21 | Outpatient (CLI) | payer MEDICARE, OTHER, SELFPAY ==
[2020-08-19 07:41] LABS: Fecal Immunochemical Test Negative (Negative)
== END ==
PROVIDERS: PCP Nurse Practitioner; Referring Provider Nurse Practitioner; Visit Provider Nurse Practitioner
DX: E10.319 Type 1 diabetes mellitus with unspecified diabetic retinopathy without macular edema (principal); E78.5 Hyperlipidemia, unspecified; I10 Essential (primary) hypertension; Z12.11 Encounter for screening for malignant neoplasm of colon; Z79.899 Other long term (current) drug therapy
CPT/HCPCS: 82274

== ENCOUNTER → 2020-11-03 09:38 | Outpatient (CLI) | payer MEDICARE, OTHER, SELFPAY ==
--- NOTE | 2020-11-03 09:39 | DI.RAD.S_ITS ---
PROCEDURE: XR FOOT LT MIN 3V INDICATIONS: big Toe injury TECHNIQUE: 3 views of the foot were acquired. COMPARISON: None. FINDINGS: Bones: No dislocations. No suspicious bony lesions. There is a diagonal fracture across the base of the lateral aspect of the great toe distal phalanx. This extends into the articular surface slightly. Soft tissues: No tibiotalar joint effusion. Achilles tendon appears normal. IMPRESSION: Articular margin fracture great toe distal phalanx. This is located laterally. Dictated by: Dexter Bay M.D. on 11/03/2020 at 10:06 Approved by: Dexter Bay M.D. on 11/03/2020 at 10:07
== END ==
PROVIDERS: PCP Nurse Practitioner; Referring Provider Physician Assistant; Visit Provider Physician Assistant
DX: S92.422A Displaced fracture of distal phalanx of left great toe, initial encounter for closed fracture (principal); X58.XXXA Exposure to other specified factors, initial encounter
CPT/HCPCS: 73630

== ENCOUNTER → 2020-11-11 10:35 | Outpatient (CLI) | payer MEDICARE, OTHER, SELFPAY ==
[2020-11-11 11:35] LABS: Hemoglobin A1C% w Est Avg Glu 7.2 % (4.0-6.0)
== END ==
PROVIDERS: PCP Nurse Practitioner; Referring Provider Internal Medicine; Visit Provider Internal Medicine
DX: E10.9 Type 1 diabetes mellitus without complications (principal)
CPT/HCPCS: 36415; 83036

== ENCOUNTER → 2020-12-30 11:01 | Outpatient (CLI) | payer MEDICARE, OTHER, SELFPAY ==
--- NOTE | 2020-12-30 | DI.MG.S_ITS ---
BILATERAL DIGITAL SCREENING MAMMOGRAM 3D/2D WITH CAD: 12/30/2020 CLINICAL: Routine screening. Comparison is made to exams dated: 12/12/2019 mammogram, 08/28/2018 mammogram - [facility], and 07/01/2016 mammogram - [facility]. There are scattered fibroglandular elements in both breasts. Current study was also evaluated with a Computer Aided Detection (CAD) system. There are benign calcifications in both breasts. No significant masses, calcifications, or other findings are seen in either breast. There has been no significant interval change. IMPRESSION: BENIGN There is no mammographic evidence of malignancy. A 1 year screening mammogram is recommended. This exam was interpreted at Station ID: [id number]. NOTE: For mammograms, a report in lay terms will be sent to the patient. Approximately 15% of breast malignancies will not be visualized mammographically. In the management of a palpable breast mass, a negative mammogram must not discourage biopsy of a clinically suspicious lesion. Electronically Signed By: Bassam bhandari/lokesh:12/30/2020 11:36:07 letter sent: Normal Exam ACR BI-RADS Category 2: Benign Finding(s) 3342F
== END ==
PROVIDERS: PCP Nurse Practitioner; Referring Provider Nurse Practitioner; Visit Provider Nurse Practitioner
DX: Z12.31 Encounter for screening mammogram for malignant neoplasm of breast (principal)
CPT/HCPCS: 77063; 77067

== ENCOUNTER → 2021-04-13 13:26 | Outpatient (CLI) | payer MEDICARE, OTHER, SELFPAY ==
--- NOTE | 2021-04-13 13:27 | DI.RAD.S_ITS ---
PROCEDURE: XR LUMBAR SPINE 2-3V INDICATIONS: recent fall, continued back pain TECHNIQUE: 3 views of the lumbar spine were acquired. COMPARISON: [facility], CT, CT CHEST WO [facility], 06/19/2018, 9:28. FINDINGS: Bones: 5 [id number] vertebrae are present. There is normal bony alignment. Moderate chronic T11 compression fracture. Mild age indeterminate T12 compression. Both of these fractures have occurred since 06/19/2018. No suspicious bony lesions. Soft tissues: Overlying bowel gas pattern is normal. No suspicious soft tissue calcifications. IMPRESSION: Moderate chronic T11 compression fracture and mild age indeterminate T12 compression fracture. No evidence acute bony abnormality of the lumbar spine. Lumbar spine MRI, including the lower thoracic spine may be helpful for further assessment to establish fracture acuity. Dictated by: Braden Justice M.D. on 04/13/2021 at 16:51 Approved by: Braden Justice M.D. on 04/13/2021 at 16:54
== END ==
PROVIDERS: PCP Nurse Practitioner; Referring Provider Nurse Practitioner; Visit Provider Nurse Practitioner
DX: S22.088A Other fracture of T11-T12 vertebra, initial encounter for closed fracture (principal); W19.XXXA Unspecified fall, initial encounter
CPT/HCPCS: 72100

== ENCOUNTER → 2021-04-28 14:38 | Outpatient (CLI) | payer MEDICARE, OTHER, SELFPAY ==
--- NOTE | 2021-04-28 14:40 | DI.MRI.S_ITS ---
PROCEDURE: MR LUMBAR SPINE WO CON INDICATIONS: back pain, compression fractures TECHNIQUE: Noncontrast sagittal T1 spin echo and T2 fast echo, sagittal STIR, axial T1 and T2 fast spin echo through the lumbar spine. In cases with scoliosis, additional coronal T2 fast spin echo may be performed. COMPARISON: [facility], CR, XR LUMBAR SPINE 2-3V, 04/13/2021, 13:21. FINDINGS: Image quality: Excellent. Alignment and Curvature: There is normal bony alignment. Bones: Loss of height noted in the T11 and T12 vertebral bodies compatible with compression fractures. Increased T2 signal noted in the marrow space of the T11 and T12 vertebral bodies indicating compression fractures or acute/subacute. The T11 compression fracture results in approximately 40% loss of normal anterior vertebral body height. The T12 compression fracture results in approximately 15% loss of normal vertebral body height. Fracture lucencies extend through the posterior cortex of the T11 and T12 vertebral bodies indicating compression fractures or burst type. There is a mildly retropulsed bone fragment associated with the T12 compression deformity at causes mild narrowing of the central canal without impingement upon the thoracic spinal cord. No significant kyphosis associated with the T11 or T12 compression fractures. Spinal Cord: Conus medullaris terminates at the L1-2 disc level. Visualized cord demonstrates normal signal and size. Paraspinous Soft Tissues: No paravertebral masses. T12-L1: Normal appearance. L1-L2: Slight loss of disc signal. Minimal, diffuse disc bulge. No central stenosis. No neural foraminal narrowing. No neural compression. L2-L3: Slight loss of disc signal. Mild, diffuse disc bulge. Mild narrowing of the central canal. No neural foraminal narrowing. No neural compression. Fissure noted in the posterior annulus. L3-L4: Slight loss of disc signal. Minimal, diffuse disc bulge. No central stenosis. No neural foraminal narrowing. No neural compression. L4-L5: Loss of disc signal. Mild, diffuse disc bulge. Small central disc protrusion. Mild narrowing of the central canal. Mild bilateral neural foraminal narrowing. No neural compression. L5-S1: Slight loss of disc signal. Minimal, diffuse disc bulge. Mild bilateral facet hypertrophy. No central stenosis. No neural foraminal narrowing. No neural compression. IMPRESSION: 1. Mild multilevel degenerative disc disease. 2. Mild L5-S1 facet arthropathy. 3. No severe central canal narrowing. 4. No severe neural foraminal narrowing. 5. No neural compression. 6. L2-L3 disc annulus fissure. 7. T11 and T12 acute/subacute burst-type compression fractures. Dictated by: Sandrine Sommer MD, PhD on 04/28/2021 at 16:09 Approved by: Sandrine Sommer MD, PhD on 04/28/2021 at 16:17
--- NOTE | 2021-04-28 14:40 | DI.MRI.S_ITS ---
PROCEDURE: MR THORACIC SPINE WO CON INDICATIONS: back pain, compression fractures TECHNIQUE: Noncontrast sagittal T1 spine echo and T2 fast spin echo, sagittal STIR, axial T1 and T2 fast spin echo through the thoracic spine. COMPARISON: [facility], MR, MR LUMBAR SPINE WO CON, 04/28/2021, 14:55. [facility], CR, XR LUMBAR SPINE 2-3V, 04/13/2021, 13:21. FINDINGS: There are acute compression fractures at T11 and T12 with approximately 20% height loss at T11 and 15% height loss at T12. The fracture planes are immediately subjacent to the superior endplates at both levels. There is mild osseous retropulsion at both levels producing mild spinal canal stenosis. No flattening of the cord or displacement of the traversing nerve roots. Remaining vertebral body heights are normal. No listhesis or malalignment. No spinal canal or neural foraminal stenosis at the remaining levels. Regional soft tissues are normal. IMPRESSION: Acute T11 and T12 compression fractures, with 20% height loss at T11 and 15% height loss at T12. Dictated by: Duc Gutierrez M.D. on 04/28/2021 at 15:57 Approved by: Duc Gutierrez M.D. on 04/28/2021 at 15:59
== END ==
PROVIDERS: PCP Nurse Practitioner; Referring Provider Nurse Practitioner; Visit Provider Nurse Practitioner
DX: M51.36 Other intervertebral disc degeneration, lumbar region (principal); S22.080A Wedge compression fracture of T11-T12 vertebra, initial encounter for closed fracture; M47.817 Spondylosis without myelopathy or radiculopathy, lumbosacral region
CPT/HCPCS: 72146; 72148

== ENCOUNTER → 2021-07-21 08:23 | Outpatient (CLI) | payer MEDICARE, OTHER, SELFPAY ==
[2021-07-21 09:31] LABS: Hemoglobin A1C% w Est Avg Glu 6.7 % (4.0-6.0)
[2021-07-21 09:47] LABS: Alanine Aminotransferase 21 IU/L (<35); Albumin 4.2 g/dL (3.5-5.0); Albumin Globulin Ratio 1.6 (1.0-2.8); Alkaline Phosphatase 89 U/L (38-126); Aspartate Aminotransferase 24 IU/L (14-36); Bilirubin Total 0.4 mg/dL (0.2-1.3); Blood Urea Nitrogen 15 mg/dL (7-17); Calcium 9.3 mg/dL (8.4-10.2); Carbon Dioxide 30 mmol/L (22-32); Chloride 103 mmol/L (98-107); Cholesterol 169 mg/dL (140-199); Estimated Glomerular Filt Rate 58.7 mL/min (>60); Globulin 2.6 g/dL (1.7-4.1); Glucose 104 mg/dL (80-110); HDL Cholesterol 85 mg/dL (40-60); HEMOLYSIS < 15 (0-50); LDL Cholesterol Calculated 68 mg/dL (<100); Potassium 4.6 mmol/L (3.4-5.1); Sodium 140 mmol/L (137-145); Total Protein 6.8 g/dL (6.3-8.2); Triglycerides 78 mg/dL (35-150)
== END ==
PROVIDERS: PCP Nurse Practitioner; Referring Provider Nurse Practitioner; Visit Provider Nurse Practitioner
DX: E10.8 Type 1 diabetes mellitus with unspecified complications (principal); I10 Essential (primary) hypertension; E78.5 Hyperlipidemia, unspecified; Z79.899 Other long term (current) drug therapy
CPT/HCPCS: 36415; 80053; 80061; 83036

== ENCOUNTER → 2021-11-03 14:03 | Outpatient (CLI) | payer MEDICARE, OTHER, SELFPAY ==
--- NOTE | 2021-11-03 14:04 | DI.RAD.S_ITS ---
PROCEDURE: XR THORACIC SPINE 3V INDICATIONS: continued thoracic back pain, hx of compression fx TECHNIQUE: 3 views of the thoracic spine were acquired. COMPARISON: [facility], MR, MR THORACIC SPINE WO CON, 04/28/2021, 14:55. FINDINGS: Bones: Again noted are acute/subacute superior endplate compression fractures of T11 and T12. The T11 compression fracture was likely underestimated on the previous MRI, and is slightly greater than 50% at its midportion. However, by looking at the previous MRI in the current study, it it may not be changed. A mild T12 compression is approximately 30%. No additional compression fractures. Soft tissues: No paravertebral stripe thickening. IMPRESSION: Acute/subacute compression fractures of T11 and T12, as were present on the previous MRI. Dictated by: Braden Justice M.D. on 11/03/2021 at 16:49 Approved by: Braden Justice M.D. on 11/03/2021 at 16:52
== END ==
PROVIDERS: PCP Nurse Practitioner; Referring Provider Nurse Practitioner; Visit Provider Nurse Practitioner
DX: M54.6 Pain in thoracic spine (principal); M48.54XA Collapsed vertebra, not elsewhere classified, thoracic region, initial encounter for fracture
CPT/HCPCS: 72072

== ENCOUNTER → 2021-12-02 08:52 | Outpatient (CLI) | payer MEDICARE, OTHER, SELFPAY ==
[2021-12-02 10:13] LABS: Hemoglobin A1C% w Est Avg Glu 7.1 % (4.0-6.0)
[2021-12-02 10:19] LABS: Alanine Aminotransferase 23 IU/L (<35); Albumin 4.1 g/dL (3.5-5.0); Albumin Globulin Ratio 1.6 (1.0-2.8); Alkaline Phosphatase 90 U/L (38-126); Aspartate Aminotransferase 22 IU/L (14-36); Bilirubin Total 0.7 mg/dL (0.2-1.3); Blood Urea Nitrogen 22 mg/dL (7-17); Calcium 9.2 mg/dL (8.4-10.2); Carbon Dioxide 31 mmol/L (22-32); Chloride 103 mmol/L (98-107); Cholesterol 174 mg/dL (140-199); Estimated Glomerular Filt Rate > 60 mL/min (>60); Globulin 2.6 g/dL (1.7-4.1); Glucose 182 mg/dL (80-110); HDL Cholesterol 75 mg/dL (40-60); HEMOLYSIS < 15 (0-50); LDL Cholesterol Calculated 85 mg/dL (<100); Potassium 4.8 mmol/L (3.4-5.1); Sodium 137 mmol/L (137-145); Total Protein 6.7 g/dL (6.3-8.2); Triglycerides 70 mg/dL (35-150)
[2021-12-02 10:24] LABS: Microalbumi Creatinin Ratio Ur 43.2 ug/mg CR (<30); Microalbumin Urine Random 5.1 mg/dL (0-1.6)
[2021-12-02 10:55] LABS: Thyroid Stimulating Hormone 2.75 uIU/mL (0.47-4.68)
[2021-12-03 20:04] LABS: Hep C Virus Ab w/Reflex Quant NEGATIVE s/c (NEGATIVE)
== END ==
PROVIDERS: PCP Nurse Practitioner; Referring Provider Nurse Practitioner; Visit Provider Nurse Practitioner
DX: E10.8 Type 1 diabetes mellitus with unspecified complications (principal); E03.9 Hypothyroidism, unspecified; Z11.59 Encounter for screening for other viral diseases; F41.9 Anxiety disorder, unspecified; F32.89 Other specified depressive episodes; E78.5 Hyperlipidemia, unspecified
CPT/HCPCS: 36415; 80053; 80061; 82043; 82570; 83036; 84443; 86803

== ENCOUNTER → 2021-12-08 14:00 | Outpatient (CLI) | payer MEDICARE, OTHER, SELFPAY ==
[2021-12-08 15:45] LABS: Thyroid Stimulating Hormone 2.64 uIU/mL (0.47-4.68)
== END ==
PROVIDERS: PCP Nurse Practitioner; Referring Provider Nurse Practitioner; Visit Provider Nurse Practitioner
DX: I10 Essential (primary) hypertension (principal); E10.8 Type 1 diabetes mellitus with unspecified complications; E03.9 Hypothyroidism, unspecified
CPT/HCPCS: 36415; 84443; 93005; 93010

== ENCOUNTER → 2021-12-30 15:10 | Outpatient (CLI) | payer MEDICARE, OTHER, SELFPAY ==
--- NOTE | 2021-12-30 15:11 | DI.MG.S_ITS ---
BILATERAL DIGITAL SCREENING MAMMOGRAM 3D/2D WITH CAD: 12/30/2021 CLINICAL: Routine screening. Comparison is made to exams dated: 12/30/2020 mammogram, 12/12/2019 mammogram, and 08/28/2018 mammogram - [facility]. There are scattered areas of fibroglandular density in both breasts (category b / 25%-50% glandular tissue). Current study was also evaluated with a Computer Aided Detection (CAD) system. There are benign calcifications in both breasts. No significant masses, calcifications, or other findings are seen in either breast. There has been no significant interval change. IMPRESSION: BENIGN There is no mammographic evidence of malignancy. A 1 year screening mammogram is recommended. Based on the Tyrer Cuzick model (a risk assessment model) the patient's lifetime risk is 4.9% and her 10 year risk is 3.4%. According to the ACR, ACS, and NCCN guidelines, an annual breast MRI exam along with mammogram is recommended if the patient's lifetime risk is 20% or greater. This exam was interpreted at Station ID: [id number]. NOTE: For mammograms, a report in lay terms will be sent to the patient. Approximately 15% of breast malignancies will not be visualized mammographically. In the management of a palpable breast mass, a negative mammogram must not discourage biopsy of a clinically suspicious lesion. Electronically Signed By: Rhiannon ortiz/lokesh:12/31/2021 09:30:42 letter sent: Normal Exam ACR BI-RADS Category 2: Benign Finding(s) 3342F
== END ==
PROVIDERS: PCP Nurse Practitioner; Referring Provider Nurse Practitioner; Visit Provider Nurse Practitioner
DX: Z12.31 Encounter for screening mammogram for malignant neoplasm of breast (principal)
CPT/HCPCS: 77063; 77067

== ENCOUNTER → 2022-03-17 08:26 | Outpatient (CLI) | payer MEDICARE, OTHER, SELFPAY ==
[2022-03-17 10:07] LABS: Hemoglobin A1C% w Est Avg Glu 7.2 % (4.0-6.0)
[2022-03-17 10:13] LABS: Alanine Aminotransferase 29 IU/L (<35); Albumin 4.2 g/dL (3.5-5.0); Albumin Globulin Ratio 1.4 (1.0-2.8); Alkaline Phosphatase 94 U/L (38-126); Aspartate Aminotransferase 26 IU/L (14-36); BUN Creatinine Ratio 17.5 (6-22); Bilirubin Total 0.7 mg/dL (0.2-1.3); Blood Urea Nitrogen 17 mg/dL (7-17); Calcium 9.1 mg/dL (8.4-10.2); Carbon Dioxide 30 mmol/L (22-32); Chloride 101 mmol/L (98-107); Cholesterol 179 mg/dL (140-199); Estimated Glomerular Filt Rate > 60 mL/min (>60); Globulin 2.9 g/dL (1.7-4.1); Glucose 146 mg/dL (80-110); HDL Cholesterol 91 mg/dL (40-60); HEMOLYSIS < 15 (0-50); LDL Cholesterol Calculated 73 mg/dL (<100); Potassium 4.7 mmol/L (3.4-5.1); Sodium 140 mmol/L (137-145); Total Protein 7.1 g/dL (6.3-8.2); Triglycerides 74 mg/dL (35-150)
[2022-03-17 10:35] LABS: Creatinine Urine Random 84.4 mg/dL
[2022-03-17 10:37] LABS: Microalbumi Creatinin Ratio Ur 55.6 ug/mg CR (<30); Microalbumin Urine Random 4.7 mg/dL (0-1.6)
[2022-03-18 12:32] LABS: Fecal Immunochemical Test Negative (Negative)
== END ==
PROVIDERS: PCP Nurse Practitioner; Referring Provider Nurse Practitioner; Visit Provider Nurse Practitioner
DX: E10.8 Type 1 diabetes mellitus with unspecified complications (principal); E78.5 Hyperlipidemia, unspecified; Z12.11 Encounter for screening for malignant neoplasm of colon; I10 Essential (primary) hypertension; Z79.899 Other long term (current) drug therapy
CPT/HCPCS: 36415; 80053; 80061; 82043; 82274; 82570; 83036

== ENCOUNTER → 2022-03-23 10:16 | Outpatient (CLI) | payer MEDICARE, OTHER, SELFPAY ==
--- NOTE | 2022-03-23 10:18 | DI.ECHO.S_ITS ---
[place] [facility]---------+ [facility] +---------+ : : [address] : : : : [id number] : : : : Phone: [phone]+ Echocardiogram Report + + :Name: PEGGY JACKSON Study Date: 03/23/2022 Height: 63 in : :[facility] ReadingLocation: Weight: 190 lb : : Gender: Female BSA: 1.9 m2 : :: 1950 Age: 72 yrs BP: 146/74 mmHg: :Reason For Study: Hypertension : :Ordering Physician: ROSALIND, : :MAGDALENE Performed By: Nadeem Puckett : :Referring: MAGDALENE BOYER : + + Interpretation Summary 1) Normal left ventricular thickness, size, wall motion, and systolic function (EF 55-60%). 2) Normal right ventricular size and function. 3) Mild aortic regurgitation and mild mitral regurgitation present. 4) No prior Echo available for comparison. Procedure: A two-dimensional transthoracic echocardiogram with color flow and Doppler was performed. The study quality was technically adequate. There is no prior echocardiogram noted for this patient. The patient was in normal sinus rhythm during the exam. Left Ventricle: The left ventricle is normal in size and wall thickness. Left ventricular systolic function is normal. The ejection fraction is estimated to be 55-60%. There are no focal wall motion abnormalities. Diastolic function could not be accurately assessed due to unobtainable data. Right Ventricle: The right ventricle is normal in size and function. Atria: Both atria are normal in size. The interatrial septum grossly appears intact with no obvious evidence for an atrial septal defect. Mitral Valve: The mitral valve is normal in structure and function. There is mild mitral regurgitation. Aortic Valve: The aortic valve is normal in structure and function. There is no aortic valve stenosis. There is mild aortic regurgitation. Tricuspid Valve: The tricuspid valve is normal in structure and function. There is trace tricuspid regurgitation. Pulmonary artery pressures cannot be estimated because of the lack of a measurable TR jet velocity. Pulmonic Valve: The pulmonic valve is normal in structure and function. There is a trace or physiologic amount of pulmonic regurgitation. Great Vessels: The aortic root is normal size. The dimensions of the ascending aorta are normal. The IVC is of normal diameter and collapses greater than 50% with a sniff. This suggests a low right atrial pressure of 3 mm Hg. Pericardium/ Pleura There is no pericardial effusion. There is no pleural effusion. MMode/2D Measurements & Calculations LVIDd: 5.0 cm LVOT diam: 1.9 cm LVIDs: 3.4 cm Ao root diam: 3.0 cm FS: 32.0 % asc Aorta Diam: 3.2 cm IVSd: 1.0 cm LVPWd: 1.0 cm LV collazo. diameter/BSA (cm/m^2): 2.6 LV sys. diameter/BSA (cm/m^2): 1.8 LA dimension: 3.4 cm RA long axis: 4.1 cm LA A2 area: 14.1 cm2 LA A4 area: 13.9 cm2 LA length (vol): 4.8 cm LA vol: 34.9 ml LA vol index: 18.5 ml/m2 TAPSE_phl: 2.9 cm Doppler Measurements & Calculations Ao V2 max: 143.0 cm/sec LVOT Max Sacha: 94.6 cm/sec Ao V2 mean: 105.0 cm/sec LV V1 max P.6 mmHg Ao max P.0 mmHg LV V1 VTI: 21.5 cm Ao mean P.0 mmHg JUSTA(I,D): 1.7 cm2 Ao V2 VTI: 33.9 cm JUSTA(V,D): 1.8 cm2 sev ratio: 0.63 JUSTA indexed to BSA (cm^2/m^2): 0.90 MV E max sacha: 66.4 cm/sec SV(LVOT): 57.8 ml MV A max sacha: 96.8 cm/sec MV E/A: 0.69 Med Peak E' Sacha: 5.9 cm/sec E/E' med: 11.3 Lat Peak E' Sacha: 8.5 cm/sec E/E' lat: 7.8 E/e' average: 9.5 MV dec time: 0.35 sec AV VR_phl: 0.66 MV P1/2t-pr_phl: 102.0 msec JUSTA(VTI)/BSA_phl: 0.85 Reading Physician:04:02 PM
== END ==
PROVIDERS: PCP Nurse Practitioner; Referring Provider Nurse Practitioner; Visit Provider Nurse Practitioner
DX: I10 Essential (primary) hypertension (principal); Z13.820 Encounter for screening for osteoporosis; I08.0 Rheumatic disorders of both mitral and aortic valves; M85.88 Other specified disorders of bone density and structure, other site; Z78.0 Asymptomatic menopausal state; Z90.710 Acquired absence of both cervix and uterus; Z87.311 Personal history of (healed) other pathological fracture
CPT/HCPCS: 77080; 93306

== ENCOUNTER → 2022-07-15 08:38 | Outpatient (CLI) | payer MEDICARE, OTHER, SELFPAY ==
[2022-07-15 10:19] LABS: BUN Creatinine Ratio 20.8 (6-22); Blood Urea Nitrogen 20 mg/dL (7-17); Calcium 9.1 mg/dL (8.4-10.2); Carbon Dioxide 31 mmol/L (22-32); Chloride 99 mmol/L (98-107); Estimated Glomerular Filt Rate > 60 mL/min (>60); Glucose 131 mg/dL (80-110); HEMOLYSIS < 15 (0-50); Potassium 4.5 mmol/L (3.4-5.1); Sodium 138 mmol/L (137-145)
[2022-07-16 08:36] LABS: C Peptide < 0.1 ng/mL (1.1-4.4)
== END ==
PROVIDERS: PCP Nurse Practitioner; Referring Provider Internal Medicine Endocrinology, Diabetes & Metabolism; Visit Provider Internal Medicine Endocrinology, Diabetes & Metabolism
DX: E10.65 Type 1 diabetes mellitus with hyperglycemia (principal)
CPT/HCPCS: 36415; 80048; 84681

== ENCOUNTER → 2022-10-29 08:46 | Outpatient (CLI) | payer MEDICARE, OTHER, SELFPAY ==
[2022-10-29 09:32] LABS: Cholesterol 153 mg/dL (140-199); HDL Cholesterol 76 mg/dL (40-60); LDL Cholesterol Calculated 60 mg/dL (<100); Triglycerides 83 mg/dL (35-150)
[2022-10-30 04:09] LABS: Labcorp Hemoglobin (Hb) A1c 7.6 % (4.8-5.6)
== END ==
PROVIDERS: PCP Nurse Practitioner; Referring Provider Internal Medicine Endocrinology, Diabetes & Metabolism; Visit Provider Internal Medicine Endocrinology, Diabetes & Metabolism
DX: E10.65 Type 1 diabetes mellitus with hyperglycemia (principal); Z46.81 Encounter for fitting and adjustment of insulin pump; E10.69 Type 1 diabetes mellitus with other specified complication; E78.5 Hyperlipidemia, unspecified
CPT/HCPCS: 36415; 80061; 83036

== ENCOUNTER → 2023-02-07 13:58 | Outpatient (CLI) | payer MEDICARE, OTHER, SELFPAY ==
--- NOTE | 2023-02-07 13:59 | DI.MG.S_ITS ---
BILATERAL DIGITAL SCREENING MAMMOGRAM 3D/2D WITH CAD: 02/07/2023 CLINICAL: Routine screening. Comparison is made to exams dated: 12/30/2021 mammogram, 12/30/2020 mammogram, and 12/12/2019 mammogram - [facility]. There are scattered areas of fibroglandular density in both breasts (category b / 25%-50% glandular tissue). Current study was also evaluated with a Computer Aided Detection (CAD) system. There is an asymmetry in the right breast posterior depth lateral region seen on the XCCL view. There also is an asymmetry in the right breast posterior depth central to the nipple seen on the XCCL view. No other significant masses, calcifications, or other findings are seen in either breast. IMPRESSION: INCOMPLETE: NEEDS ADDITIONAL IMAGING EVALUATION The asymmetry in the right breast posterior depth lateral region seen on the XCCL view is indeterminate. Additional views with possible ultrasound are recommended. The asymmetry in the right breast posterior depth central to the nipple seen on the XCCL view is indeterminate. Additional views with possible ultrasound are recommended. Based on the Tyrer Cuzick model (a risk assessment model) the patient's lifetime risk is 4.6% and her 10 year risk is 3.5%. According to the ACR, ACS, and NCCN guidelines, an annual breast MRI exam along with mammogram is recommended if the patient's lifetime risk is 20% or greater. This exam was interpreted at Station ID: [id number]. NOTE: For mammograms, a report in lay terms will be sent to the patient. Approximately 15% of breast malignancies will not be visualized mammographically. In the management of a palpable breast mass, a negative mammogram must not discourage biopsy of a clinically suspicious lesion. Electronically Signed By: Saul Monsalve M.D. lc/:02/07/2023 15:06:27 letter sent: Additional Imaging Needed ACR BI-RADS Category 0: Incomplete 3340F
== END ==
PROVIDERS: PCP Nurse Practitioner; Referring Provider Nurse Practitioner; Visit Provider Nurse Practitioner
DX: Z12.31 Encounter for screening mammogram for malignant neoplasm of breast (principal); N64.89 Other specified disorders of breast
CPT/HCPCS: 77063; 77067

== ENCOUNTER → 2023-02-24 09:27 | Outpatient (CLI) | payer MEDICARE, OTHER, SELFPAY ==
--- NOTE | 2023-02-24 09:29 | DI.MG.S_ITS ---
UNILATERAL RIGHT DIGITAL DIAGNOSTIC MAMMOGRAM 3D/2D WITH ADDITIONAL VIEWS: 02/24/2023 CLINICAL: Additional evaluation requested from prior study. Comparison is made to exams dated: 02/07/2023 mammogram, 12/30/2021 mammogram, 12/30/2020 mammogram, and 12/12/2019 mammogram - [facility]. There are scattered areas of fibroglandular density in the right breast (category b / 25%-50% glandular tissue). There is a benign asymmetry in the right breast posterior depth central to the nipple seen on the craniocaudal view only. There also is a benign right axillary lymph node in the right axillary tail. This is not significantly changed. No other significant masses or calcifications are seen in the breast. IMPRESSION: BENIGN The asymmetry in the right breast posterior depth is consistent with a normal variant accessory muscle. The more lateral focal asymmetry in the right breast corresponds to a normal lower axillary lymph node. There is no mammographic evidence of malignancy. Return to annual mammogram screening schedule is recommended. Based on the Tyrer Cuzick model (a risk assessment model) the patient's lifetime risk is 4.4% and her 10 year risk is 3.6%. According to the ACR, ACS, and NCCN guidelines, an annual breast MRI exam along with mammogram is recommended if the patient's lifetime risk is 20% or greater. This exam was interpreted at Station ID: [id number]. NOTE: For mammograms, a report in lay terms will be sent to the patient. Approximately 15% of breast malignancies will not be visualized mammographically. In the management of a palpable breast mass, a negative mammogram must not discourage biopsy of a clinically suspicious lesion. Electronically Signed By: Ba Baltazar M.D. ar/:02/24/2023 10:07:15 letter sent: Normal Exam ACR BI-RADS Category 2: Benign Finding(s) 3342F
== END ==
PROVIDERS: PCP Nurse Practitioner; Referring Provider Nurse Practitioner; Visit Provider Nurse Practitioner
DX: R92.8 Other abnormal and inconclusive findings on diagnostic imaging of breast (principal)
CPT/HCPCS: 77065; G0279

== ENCOUNTER → 2023-04-28 10:42 | Outpatient (CLI) | payer MEDICARE, OTHER, SELFPAY ==
[2023-04-28 12:26] LABS: Creatinine Urine Random 206.7 mg/dL
[2023-04-28 12:32] LABS: Microalbumi Creatinin Ratio Ur 24.6 ug/mg CR (<30); Microalbumin Urine Random 5.1 mg/dL (0-1.6)
[2023-04-28 13:25] LABS: Alanine Aminotransferase 31 IU/L (<35); Albumin 4.2 g/dL (3.5-5.0); Albumin Globulin Ratio 1.3 (1.0-2.8); Alkaline Phosphatase 72 U/L (38-126); Aspartate Aminotransferase 26 IU/L (14-36); BUN Creatinine Ratio 24.8 (6-22); Bilirubin Total 1.2 mg/dL (0.2-1.3); Blood Urea Nitrogen 27 mg/dL (7-17); Calcium 9.6 mg/dL (8.4-10.2); Carbon Dioxide 25 mmol/L (22-32); Chloride 104 mmol/L (98-107); Cholesterol 172 mg/dL (140-199); Estimated Glomerular Filt Rate 54 mL/min (>60); Globulin 3.2 g/dL (1.7-4.1); Glucose 113 mg/dL (80-110); HDL Cholesterol 75 mg/dL (40-60); HEMOLYSIS < 15 (0-50); LDL Cholesterol Calculated 83 mg/dL (<100); Potassium 5.1 mmol/L (3.4-5.1); Sodium 137 mmol/L (137-145); Total Protein 7.4 g/dL (6.3-8.2); Triglycerides 69 mg/dL (35-150)
[2023-04-28 13:38] LABS: Thyroid Stimulating Hormone 2.09 uIU/mL (0.47-4.68)
[2023-04-28 13:56] LABS: Hemoglobin A1C% w Est Avg Glu 6.7 % (4.0-6.0)
== END ==
PROVIDERS: PCP Nurse Practitioner; Referring Provider Nurse Practitioner; Visit Provider Nurse Practitioner
DX: E10.69 Type 1 diabetes mellitus with other specified complication (principal); E78.5 Hyperlipidemia, unspecified; R80.9 Proteinuria, unspecified; E03.9 Hypothyroidism, unspecified; I10 Essential (primary) hypertension; E10.8 Type 1 diabetes mellitus with unspecified complications
CPT/HCPCS: 36415; 80053; 80061; 82043; 82570; 83036; 84443

== ENCOUNTER → 2023-12-23 12:30 | Outpatient (CLI) | payer MEDICARE, OTHER, SELFPAY ==
[2023-12-23 13:08] LABS: Appearance Urine UA SL CLOUDY; Bilirubin Urine UA NEGATIVE (NEGATIVE); Color Urine UA YELLOW; Glucose Urine UA NEGATIVE (Negative); Ketones Urine UA NEGATIVE (NEGATIVE); Leukocyte Esterase Urine UA 2+ (NEGATIVE); Nitrite Urine UA NEGATIVE (Negative); Occult Blood Urine UA NEGATIVE (Negative); Protein Urine UA NEGATIVE (Negative); Specific Gravity Urine UA 1.015 (1.000-1.035); Urobilinogen Urine UA 0.2 E.U./dL (0.2)
[2023-12-23 13:10] LABS: Urine Volume 10mL (spun)
[2023-12-23 13:13] LABS: Bacteria Urine Many (>30); Culture Indicated Urine Specimen Cultured; RBC Urine None Seen (0-5/HPF); Squamous Epithelial Cell Urine 1-5 /HPF (0-5/HPF); WBC Urine 5-10/HPF (0-5/HPF)
[2023-12-23 13:30] LABS: Hematocrit 35.4 % (36-46); Hemoglobin 11.7 g/dL (12.0-16.0); Mean Corpuscular HGB Conc 33.2 % (30-36); Mean Corpuscular Volume 99.2 fL (80-100); Platelet Count 261 X10^3/uL (150-400); Red Blood Cell Count 3.56 X10^6/uL (4.0-5.2); Red Cell Distribution Width 13.6 % (11.6-14.8); White Blood Cell Count 8.5 X10^3/uL (4.5-11.0)
[2023-12-23 13:43] LABS: BUN Creatinine Ratio 19.8 (6-22); Blood Urea Nitrogen 21 mg/dL (7-17); Calcium 9.4 mg/dL (8.4-10.2); Carbon Dioxide 17 mmol/L (22-32); Chloride 107 mmol/L (98-107); Estimated Glomerular Filt Rate 55 mL/min (>60); Glucose 83 mg/dL (80-110); HEMOLYSIS < 15 (0-50); Potassium 5.6 mmol/L (3.4-5.1); Sodium 137 mmol/L (137-145)
[2023-12-23 14:05] LABS: Creatinine Urine Random 92.39 mg/dL; Protein (Total) Urine Random 12 mg/dL (0-12); Protein Creatinine Ratio Urine 0.12 GRAM/24H
[2023-12-23 14:10] LABS: Microalbumin Urine Random 3.6 mg/dL (0-1.6)
== END ==
PROVIDERS: PCP Nurse Practitioner; Referring Provider Internal Medicine Nephrology; Visit Provider Internal Medicine Nephrology
DX: I12.9 Hypertensive chronic kidney disease with stage 1 through stage 4 chronic kidney disease, or unspecified chronic kidney disease (principal); E11.22 Type 2 diabetes mellitus with diabetic chronic kidney disease; N18.31 Chronic kidney disease, stage 3a; N18.2 Chronic kidney disease, stage 2 (mild); Z79.4 Long term (current) use of insulin
CPT/HCPCS: 36415; 80048; 81001; 82043; 82570; 84156; 85027; 87077; 87086; 87186

== ENCOUNTER → 2024-02-03 12:08 | Outpatient (CLI) | payer MEDICARE, OTHER, SELFPAY ==
[2024-02-03 13:15] LABS: Appearance Urine UA SL CLOUDY; Bilirubin Urine UA NEGATIVE (NEGATIVE); Color Urine UA YELLOW; Glucose Urine UA NEGATIVE (Negative); Ketones Urine UA TRACE (NEGATIVE); Leukocyte Esterase Urine UA 1+ (NEGATIVE); Nitrite Urine UA NEGATIVE (Negative); Occult Blood Urine UA NEGATIVE (Negative); Protein Urine UA TRACE (Negative); Specific Gravity Urine UA >=1.030 (1.000-1.035); Urobilinogen Urine UA 0.2 E.U./dL (0.2)
[2024-02-03 13:17] LABS: pH Urine UA 5.5 (4.5-8.0)
[2024-02-03 13:19] LABS: Urine Volume 10mL (spun)
[2024-02-03 13:20] LABS: Bacteria Urine Many (>30); Culture Indicated Urine Specimen Cultured; RBC Urine None Seen (0-5/HPF); Squamous Epithelial Cell Urine 0-1 /HPF (0-5/HPF); WBC Urine 1-5/HPF (0-5/HPF)
[2024-02-03 13:51] LABS: Hemoglobin 11.2 g/dL (12.0-16.0); Mean Corpuscular HGB Conc 32.9 % (30-36); Mean Corpuscular Hemoglobin 32.6 PG (26-34); Mean Corpuscular Volume 99.2 fL (80-100); Platelet Count 266 X10^3/uL (150-400); Protein (Total) Urine Random 21 mg/dL (0-12); Red Blood Cell Count 3.43 X10^6/uL (4.0-5.2); Red Cell Distribution Width 13.3 % (11.6-14.8); White Blood Cell Count 8.3 X10^3/uL (4.5-11.0)
[2024-02-03 13:52] LABS: Creatinine Urine Random 163.44 mg/dL
[2024-02-03 13:57] LABS: Creatinine Urine Random 161.69 mg/dL; Protein Creatinine Ratio Urine 0.12 GRAM/24H
[2024-02-03 13:59] LABS: Microalbumin Urine Random 10.2 mg/dL (0-1.6)
[2024-02-03 14:05] LABS: Hemoglobin A1C% w Est Avg Glu 6.1 % (4.0-6.0)
[2024-02-03 14:15] LABS: Alanine Aminotransferase 40 IU/L (<35); Albumin 3.8 g/dL (3.5-5.0); Albumin Globulin Ratio 1.5 (1.0-2.8); Alkaline Phosphatase 88 U/L (38-126); Aspartate Aminotransferase 35 IU/L (14-36); BUN Creatinine Ratio 16.8 (6-22); Bilirubin Total 0.9 mg/dL (0.2-1.3); Blood Urea Nitrogen 18 mg/dL (7-17); Calcium 9.4 mg/dL (8.4-10.2); Carbon Dioxide 21 mmol/L (22-32); Chloride 107 mmol/L (98-107); Estimated Glomerular Filt Rate 55 mL/min (>60); Globulin 2.5 g/dL (1.7-4.1); Glucose 259 mg/dL (80-110); HEMOLYSIS < 15 (0-50); Potassium 5.6 mmol/L (3.4-5.1); Sodium 136 mmol/L (137-145); Total Protein 6.3 g/dL (6.3-8.2)
[2024-02-03 14:31] LABS: Free T4, Direct Thyroxine 1.12 ng/dL (0.78-2.19)
[2024-02-03 14:32] LABS: Free T3, Triiodothyronine Free 3.26 pg/mL (2.77-5.27)
[2024-02-03 14:45] LABS: Thyroid Stimulating Hormone 1.57 uIU/mL (0.47-4.68)
== END ==
PROVIDERS: PCP Nurse Practitioner; Referring Provider Internal Medicine Nephrology; Visit Provider Internal Medicine Nephrology
DX: N18.31 Chronic kidney disease, stage 3a (principal); E11.22 Type 2 diabetes mellitus with diabetic chronic kidney disease; N18.2 Chronic kidney disease, stage 2 (mild); Z79.4 Long term (current) use of insulin; E03.9 Hypothyroidism, unspecified; E78.5 Hyperlipidemia, unspecified; R80.9 Proteinuria, unspecified; F41.9 Anxiety disorder, unspecified; R53.83 Other fatigue; I12.9 Hypertensive chronic kidney disease with stage 1 through stage 4 chronic kidney disease, or unspecified chronic kidney disease
CPT/HCPCS: 36415; 80053; 81001; 82043; 82570; 83036; 84156; 84439; 84443; 84481; 85027; 87077; 87086; 87186

== ENCOUNTER → 2024-03-08 12:16 | Outpatient (CLI) | payer MEDICARE, OTHER, SELFPAY ==
--- NOTE | 2024-03-08 12:17 | DI.MG.S_ITS ---
BILATERAL DIGITAL SCREENING MAMMOGRAM 3D/2D WITH CAD: 03/08/2024 CLINICAL: Routine screening. Comparison is made to exams dated: 02/07/2023 mammogram, 12/30/2021 mammogram, and 12/30/2020 mammogram - . There are scattered areas of fibroglandular density (category b / 25%-50% glandular tissue). Current study was also evaluated with a Computer Aided Detection (CAD) system. No significant masses, calcifications, or other findings are seen in either breast. There has been no significant interval change. IMPRESSION: NEGATIVE There is no mammographic evidence of malignancy. A 1 year screening mammogram is recommended. Based on the Tyrer Cuzick model (a risk assessment model) the patient's lifetime risk is 4.1% and her 10 year risk is 3.7%. According to the ACR, ACS, and NCCN guidelines, an annual breast MRI exam along with mammogram is recommended if the patient's lifetime risk is 20% or greater. This exam was interpreted at Station ID: [id number]. NOTE: For mammograms, a report in lay terms will be sent to the patient. Approximately 15% of breast malignancies will not be visualized mammographically. In the management of a palpable breast mass, a negative mammogram must not discourage biopsy of a clinically suspicious lesion. Electronically Signed By: Bassam [email or web address]/[email or web address]:03/08/2024 21:58:01 letter sent: Normal Exam ACR BI-RADS Category 1: Negative
--- NOTE | 2024-03-08 12:17 | DI.RAD.S_ITS ---
PROCEDURE: XR DEXA AXIAL SKELETON INDICATIONS: Post menopause, screening for osteoporosis COMPARISON: [facility], CR, XR DEXA AXIAL SKELETON, 03/23/2022, 13:09. FINDINGS: Lumbar Spine: Bone mineral density 0.945 g/cm2, T score -0.9. There is interval 13.6 percent increase in total lumbar spine bone mineral density. Left Hip: Bone mineral density 0.843 g/cm2, T score -0.8. There is interval 1.5 percent decrease in left total hip bone mineral density. Left Femoral Neck: Bone mineral density 0.633 g/cm2, T score -1.9. There is interval 4 percent decrease in left femoral neck bone mineral density. Right Hip: Bone mineral density 0.784 g/cm2, T score -1.3. There is interval 0.9 percent decrease in total right hip bone mineral density. Right Femoral Neck: Bone mineral density 0.643 g/cm2, T score -1.9. There is interval 2.7 percent increase in right femoral neck bone mineral density. Fracture Risk Calculation (when applicable): 10-year fracture risk of a major osteoporotic fracture 18 percent and of a hip fracture 3.8 percent. (T score greater or equal to -1.0 to: NORMAL) (T score from -1.1 to -2.4: OSTEOPENIA) (T score less than or equal to -2.5: OSTEOPOROSIS) IMPRESSION: Osteopenia. Follow-up guidelines as follows: Osteoporosis: Consider a repeat DEXA and Vertebral Fracture Assessment (VFA) exam in 2 years or sooner if medically necessary, to reassess this patient's status. Osteopenia: Consider a repeat DEXA in 2-3 years to reassess this patient's status, or if there is a new clinical indication. Normal: Consider a repeat DEXA in 5 years or sooner, or if there is a new clinical indication. All treatment decisions require clinical judgment and consideration of individual patient factors, including patient preferences, comorbidities, previous drug use, risk factors not captured in the FRAX model (e.g., frailty, falls, vitamin D deficiency, increased bone turnover, interval significant decline in bone density ) and possible under- or over-estimation of fracture risk by FRAX. In addition, the NOF Guide recommends that FDA-approved medical therapies be considered in postmenopausal women and men age >= 50 years with a: * Hip or vertebral (clinical or morphometric) fracture * T-score of <=-2.5 at the spine or hip * Ten-year fracture probability by FRAX of >= 3% for hip fracture or >=20% for major osteoporotic fracture. People with diagnosed cases of osteoporosis or at high risk for fracture should have regular bone mineral density tests. For patients eligible for Medicare, routine testing is allowed once every 2 years. The testing frequency can be increased to one year for patients who have rapidly progressing disease, those who are receiving or discontinuing medical therapy to restore bone mass, or have additional risk factors. Dictated by: Daniel Santamaria M.D. on 03/08/2024 at 17:14 Approved by: Daniel Santamaria M.D. on 03/08/2024 at 17:16
== END ==
PROVIDERS: PCP Family Medicine; Referring Provider Family Medicine; Visit Provider Family Medicine
DX: M85.89 Other specified disorders of bone density and structure, multiple sites (principal); Z12.31 Encounter for screening mammogram for malignant neoplasm of breast; Z13.820 Encounter for screening for osteoporosis; Z78.0 Asymptomatic menopausal state
CPT/HCPCS: 77063; 77067; 77080

== ENCOUNTER → 2024-03-19 08:26 | Outpatient (CLI) | payer MEDICARE, OTHER, SELFPAY ==
[2024-03-19 09:39] LABS: BUN Creatinine Ratio 20.5 (6-22); Blood Urea Nitrogen 17 mg/dL (7-17); Calcium 9.3 mg/dL (8.4-10.2); Carbon Dioxide 26 mmol/L (22-32); Chloride 105 mmol/L (98-107); Cholesterol 176 mg/dL (140-199); Estimated Glomerular Filt Rate > 60 mL/min (>60); Glucose 99 mg/dL (80-110); HDL Cholesterol 98 mg/dL (40-60); HEMOLYSIS < 15 (0-50); LDL Cholesterol Calculated 65 mg/dL (<100); Potassium 4.3 mmol/L (3.4-5.1); Sodium 138 mmol/L (137-145); Triglycerides 65 mg/dL (35-150)
== END ==
PROVIDERS: PCP Family Medicine; Referring Provider Family Medicine; Visit Provider Family Medicine
DX: E10.69 Type 1 diabetes mellitus with other specified complication (principal); E78.5 Hyperlipidemia, unspecified; K21.9 Gastro-esophageal reflux disease without esophagitis; N18.31 Chronic kidney disease, stage 3a; I12.9 Hypertensive chronic kidney disease with stage 1 through stage 4 chronic kidney disease, or unspecified chronic kidney disease
CPT/HCPCS: 36415; 80048; 80061

== ENCOUNTER → 2024-04-07 10:03 | Outpatient (CLI) | payer MEDICARE, OTHER, SELFPAY ==
[2024-04-07 11:04] LABS: Hemoglobin A1C% w Est Avg Glu 5.8 % (4.0-6.0)
[2024-04-07 11:17] LABS: Alanine Aminotransferase 29 IU/L (<35); Albumin 3.7 g/dL (3.5-5.0); Albumin Globulin Ratio 1.2 (1.0-2.8); Alkaline Phosphatase 82 U/L (38-126); Aspartate Aminotransferase 33 IU/L (14-36); BUN Creatinine Ratio 17.2 (6-22); Bilirubin Total 0.9 mg/dL (0.2-1.3); Blood Urea Nitrogen 15 mg/dL (7-17); Calcium 9.6 mg/dL (8.4-10.2); Carbon Dioxide 28 mmol/L (22-32); Chloride 105 mmol/L (98-107); Estimated Glomerular Filt Rate > 60 mL/min (>60); Glucose 137 mg/dL (80-110); HEMOLYSIS < 15 (0-50); Potassium 4.8 mmol/L (3.4-5.1); Sodium 135 mmol/L (137-145); Total Protein 6.7 g/dL (6.3-8.2)
[2024-04-07 11:39] LABS: Creatinine Urine Random 107.08 mg/dL
[2024-04-07 12:13] LABS: Microalbumin Urine Random 45.4 mg/dL (0-1.6)
== END ==
PROVIDERS: PCP Family Medicine; Referring Provider Student in an Organized Health Care Education/Training Program; Visit Provider Student in an Organized Health Care Education/Training Program
DX: E10.69 Type 1 diabetes mellitus with other specified complication (principal)
CPT/HCPCS: 36415; 80053; 82043; 82570; 83036

== ENCOUNTER → 2024-04-23 08:35 | Outpatient (CLI) | payer MEDICARE, OTHER, SELFPAY ==
[2024-04-23 10:26] LABS: BUN Creatinine Ratio 15.9 (6-22); Blood Urea Nitrogen 14 mg/dL (7-17); Calcium 9.8 mg/dL (8.4-10.2); Carbon Dioxide 26 mmol/L (22-32); Chloride 105 mmol/L (98-107); Estimated Glomerular Filt Rate > 60 mL/min (>60); Glucose 169 mg/dL (80-110); HEMOLYSIS < 15 (0-50); Potassium 4.7 mmol/L (3.4-5.1); Sodium 138 mmol/L (137-145)
[2024-04-23 10:27] LABS: Cholesterol 189 mg/dL (140-199); Triglycerides 58 mg/dL (35-150)
[2024-04-23 10:34] LABS: HDL Cholesterol 108 mg/dL (40-60); LDL Cholesterol Calculated 69 mg/dL (<100)
== END ==
PROVIDERS: Nurse Practitioner; PCP Family Medicine; Referring Provider Family Medicine; Visit Provider Family Medicine
DX: E10.69 Type 1 diabetes mellitus with other specified complication (principal); E78.5 Hyperlipidemia, unspecified; R80.9 Proteinuria, unspecified; E03.9 Hypothyroidism, unspecified; F41.9 Anxiety disorder, unspecified; R53.83 Other fatigue; I12.9 Hypertensive chronic kidney disease with stage 1 through stage 4 chronic kidney disease, or unspecified chronic kidney disease; N18.9 Chronic kidney disease, unspecified
CPT/HCPCS: 36415; 80048; 80061

== ENCOUNTER → 2024-04-30 10:38 | Outpatient (CLI) | payer MEDICARE, OTHER, SELFPAY ==
[2024-05-01 07:08] LABS: Fecal Immunochemical Test Negative (Negative)
== END ==
PROVIDERS: PCP Family Medicine; Referring Provider Family Medicine; Visit Provider Nurse Practitioner
DX: Z12.11 Encounter for screening for malignant neoplasm of colon (principal)
CPT/HCPCS: 82274

== ENCOUNTER → 2024-06-20 15:50 | Outpatient (CLI) | payer MEDICARE, OTHER, SELFPAY ==
[2024-06-20 16:59] LABS: Hematocrit 39.2 % (36-46); Hemoglobin 12.8 g/dL (12.0-16.0); Mean Corpuscular HGB Conc 32.7 % (30-36); Mean Corpuscular Hemoglobin 31.4 PG (26-34); Mean Corpuscular Volume 96.1 fL (80-100); Platelet Count 292 X10^3/uL (150-400); Red Blood Cell Count 4.08 X10^6/uL (4.0-5.2); Red Cell Distribution Width 14.2 % (11.6-14.8); White Blood Cell Count 7.3 X10^3/uL (4.5-11.0)
[2024-06-20 17:02] LABS: Appearance Urine UA CLEAR; Bilirubin Urine UA NEGATIVE (NEGATIVE); Color Urine UA YELLOW; Glucose Urine UA NEGATIVE (Negative); Ketones Urine UA NEGATIVE (NEGATIVE); Leukocyte Esterase Urine UA 1+ (NEGATIVE); Nitrite Urine UA NEGATIVE (Negative); Occult Blood Urine UA NEGATIVE (Negative); Protein Urine UA TRACE (Negative); Specific Gravity Urine UA >=1.030 (1.000-1.035); Urobilinogen Urine UA 0.2 E.U./dL (0.2)
[2024-06-20 17:25] LABS: HEMOLYSIS < 15 (0-50); Iron 120 ug/dL (37-170)
[2024-06-20 17:27] LABS: Creatinine Urine Random 93.14 mg/dL; Protein (Total) Urine Random 26 mg/dL (0-12); Protein Creatinine Ratio Urine 0.27 GRAM/24H
[2024-06-20 17:31] LABS: Albumin 4.2 g/dL (3.5-5.0); BUN Creatinine Ratio 16.5 (6-22); Blood Urea Nitrogen 15 mg/dL (7-17); Calcium 9.3 mg/dL (8.4-10.2); Carbon Dioxide 24 mmol/L (22-32); Chloride 107 mmol/L (98-107); Estimated Glomerular Filt Rate > 60 mL/min (>60); Glucose 57 mg/dL (80-110); HEMOLYSIS < 15 (0-50); Phosphorous 3.5 mg/dL (2.8-4.1); Potassium 4.7 mmol/L (3.4-5.1); Sodium 139 mmol/L (137-145)
[2024-06-20 17:32] LABS: Bacteria Urine Many (>30); Culture Indicated Urine Specimen Cultured; RBC Urine None Seen (0-5/HPF); Squamous Epithelial Cell Urine 5-10 /HPF (0-5/HPF); Urine Volume 10mL (spun); WBC Urine 10-30/HPF (0-5/HPF)
[2024-06-20 17:33] LABS: Microalbumin Urine Random 12.8 mg/dL (0-1.6)
[2024-06-20 17:38] LABS: Percent Iron Saturation 50 % (15-50); Total Iron Binding Capacity 242 ug/dL (265-497); Transferrin 234 mg/dL (206-381)
[2024-06-20 17:44] LABS: Vitamin D 25 Hydroxy (D3) 19.8 ng/mL (30.0-100.0)
[2024-06-20 18:06] LABS: Ferritin 243 ng/mL (11-264)
[2024-06-22 08:36] LABS: Parathyroid Hormone Int 35 pg/mL (15-65)
== END ==
PROVIDERS: PCP Family Medicine; Referring Provider Internal Medicine Nephrology; Visit Provider Internal Medicine Nephrology
DX: I12.9 Hypertensive chronic kidney disease with stage 1 through stage 4 chronic kidney disease, or unspecified chronic kidney disease (principal); N18.31 Chronic kidney disease, stage 3a; E87.5 Hyperkalemia; E10.22 Type 1 diabetes mellitus with diabetic chronic kidney disease
CPT/HCPCS: 36415; 80069; 81001; 82043; 82306; 82570; 82728; 83540; 83550; 83970; 84156; 85027; 87077; 87086; 87186

== ENCOUNTER → 2024-07-16 07:57 | Outpatient (CLI) | payer MEDICARE, OTHER, SELFPAY ==
[2024-07-16 08:42] LABS: Creatinine Urine Random 54.97 mg/dL; Protein (Total) Urine Random 17 mg/dL (0-12)
[2024-07-16 09:38] LABS: Albumin 4.1 g/dL (3.5-5.0); Blood Urea Nitrogen 17 mg/dL (7-17); Calcium 9.6 mg/dL (8.4-10.2); Carbon Dioxide 24 mmol/L (22-32); Chloride 104 mmol/L (98-107); Cholesterol 200 mg/dL (140-199); Estimated Glomerular Filt Rate 59 mL/min (>60); Glucose 148 mg/dL (80-110); HDL Cholesterol 99 mg/dL (40-60); HEMOLYSIS < 15 (0-50); LDL Cholesterol Calculated 87 mg/dL (<100); Phosphorous 4.1 mg/dL (2.8-4.1); Sodium 135 mmol/L (137-145); Triglycerides 72 mg/dL (35-150)
[2024-07-16 09:40] LABS: Potassium 5.5 mmol/L (3.4-5.1)
== END ==
PROVIDERS: PCP Family Medicine; Referring Provider Student in an Organized Health Care Education/Training Program; Visit Provider Student in an Organized Health Care Education/Training Program
DX: E10.69 Type 1 diabetes mellitus with other specified complication (principal)
CPT/HCPCS: 36415; 80061; 80069; 82570; 84156

== ENCOUNTER → 2024-09-11 12:25 | Outpatient (CLI) | payer MEDICARE, OTHER, SELFPAY ==
[2024-09-11 13:38] LABS: BUN Creatinine Ratio 17.9 (6-22); Blood Urea Nitrogen 17 mg/dL (7-17); Calcium 9.7 mg/dL (8.4-10.2); Carbon Dioxide 24 mmol/L (22-32); Chloride 102 mmol/L (98-107); Estimated Glomerular Filt Rate > 60 mL/min (>60); Glucose 114 mg/dL (70-99); HEMOLYSIS < 15 (0-50); Potassium 4.5 mmol/L (3.4-5.1); Sodium 136 mmol/L (137-145)
== END ==
PROVIDERS: PCP Family Medicine; Referring Provider Family Medicine; Visit Provider Family Medicine
DX: N18.9 Chronic kidney disease, unspecified (principal)
CPT/HCPCS: 36415; 80048

== ENCOUNTER → 2025-01-17 10:36 | Outpatient (CLI) | payer MEDICARE, OTHER, SELFPAY ==
[2025-01-17 11:32] LABS: Hemoglobin A1C% w Est Avg Glu 5.6 % (4.0-6.0)
[2025-01-17 11:38] LABS: Albumin 3.9 g/dL (3.5-5.0); Blood Urea Nitrogen 13 mg/dL (7-17); Calcium 9.2 mg/dL (8.4-10.2); Carbon Dioxide 24 mmol/L (22-32); Chloride 103 mmol/L (98-107); Cholesterol 188 mg/dL (140-199); Estimated Glomerular Filt Rate > 60 mL/min (>60); Glucose 82 mg/dL (70-99); HDL Cholesterol 103 mg/dL (40-60); HEMOLYSIS < 15 (0-50); Phosphorous 3.6 mg/dL (2.8-4.1); Potassium 4.4 mmol/L (3.4-5.1); Sodium 137 mmol/L (137-145); Triglycerides 76 mg/dL (35-150)
[2025-01-17 12:12] LABS: Microalbumi Creatinin Ratio Ur 145.0 ug/mg CR (<30)
== END ==
PROVIDERS: PCP Family Medicine; Referring Provider Family Medicine; Visit Provider Student in an Organized Health Care Education/Training Program
DX: E10.69 Type 1 diabetes mellitus with other specified complication (principal); E78.5 Hyperlipidemia, unspecified
CPT/HCPCS: 36415; 80061; 80069; 82043; 82570; 83036

== ENCOUNTER → 2025-01-29 10:59 | Outpatient (CLI) | payer MEDICARE, OTHER, SELFPAY ==
[2025-01-29 12:39] LABS: Add Manual Diff / Slide Review NO; Hematocrit 36.5 % (36-46); Hemoglobin 12.3 g/dL (12.0-16.0); Lymphocytes Absolute Auto 1400 /uL (1100-4500); Mean Corpuscular HGB Conc 33.8 % (30-36); Mean Corpuscular Hemoglobin 32.6 PG (26-34); Mean Corpuscular Volume 96.2 fL (80-100); Platelet Count 263 X10^3/uL (150-400)
[2025-01-29 13:03] LABS: HEMOLYSIS < 15 (0-50); Iron 88 ug/dL (37-170)
[2025-01-29 13:14] LABS: Percent Iron Saturation 35 % (15-50); Total Iron Binding Capacity 251 ug/dL (265-497); Transferrin 222 mg/dL (206-381)
[2025-01-29 13:24] LABS: Free T4, Direct Thyroxine 1.00 ng/dL (0.78-2.19)
[2025-01-29 13:38] LABS: Thyroid Stimulating Hormone 1.33 uIU/mL (0.47-4.68)
[2025-01-29 13:43] LABS: Ferritin 288 ng/mL (11-264)
== END ==
PROVIDERS: PCP Family Medicine; Referring Provider Student in an Organized Health Care Education/Training Program; Visit Provider Student in an Organized Health Care Education/Training Program
DX: R63.4 Abnormal weight loss (principal); R79.89 Other specified abnormal findings of blood chemistry
CPT/HCPCS: 36415; 82728; 83540; 83550; 84439; 84443; 85025

== ENCOUNTER → 2025-02-11 10:12 | Outpatient (CLI) | payer MEDICARE, OTHER, SELFPAY ==
[2025-02-11 11:01] LABS: Add Manual Diff / Slide Review NO; Hematocrit 39.1 % (36-46); Hemoglobin 12.8 g/dL (12.0-16.0); Lymphocytes Absolute Auto 800 /uL (1100-4500); Mean Corpuscular HGB Conc 32.7 % (30-36); Mean Corpuscular Hemoglobin 31.8 PG (26-34); Mean Corpuscular Volume 97.1 fL (80-100); Platelet Count 261 X10^3/uL (150-400)
[2025-02-11 12:22] LABS: Alanine Aminotransferase 24 IU/L (<35); Albumin 3.9 g/dL (3.5-5.0); Albumin Globulin Ratio 1.4 (1.0-2.8); Alkaline Phosphatase 97 U/L (38-126); Blood Urea Nitrogen 16 mg/dL (7-17); Calcium 9.2 mg/dL (8.4-10.2); Carbon Dioxide 28 mmol/L (22-32); Chloride 102 mmol/L (98-107); Estimated Glomerular Filt Rate > 60 mL/min (>60); Globulin 2.8 g/dL (1.7-4.1); Glucose 126 mg/dL (70-99); HEMOLYSIS < 15 (0-50); Potassium 4.6 mmol/L (3.4-5.1); Sodium 136 mmol/L (137-145); Total Protein 6.7 g/dL (6.3-8.2)
[2025-02-11 12:24] LABS: Iron 103 ug/dL (37-170)
[2025-02-11 12:55] LABS: Ferritin 179 ng/mL (11-264)
== END ==
PROVIDERS: PCP Family Medicine; Referring Provider Family Medicine; Visit Provider Family Medicine
DX: R63.4 Abnormal weight loss (principal); R79.89 Other specified abnormal findings of blood chemistry; D72.824 Basophilia; E87.5 Hyperkalemia; E55.9 Vitamin D deficiency, unspecified; N18.31 Chronic kidney disease, stage 3a; E10.69 Type 1 diabetes mellitus with other specified complication; C44.92 Squamous cell carcinoma of skin, unspecified; E78.5 Hyperlipidemia, unspecified; E03.9 Hypothyroidism, unspecified; R80.9 Proteinuria, unspecified
CPT/HCPCS: 36415; 80053; 82728; 83540; 83615; 85025

== ENCOUNTER → 2025-03-19 15:02 | Outpatient (CLI) | payer MEDICARE, OTHER, SELFPAY ==
--- NOTE | 2025-03-19 15:03 | DI.MG.S_ITS ---
MM screening mammo BI: 03/19/2025. BI-RADS: 2 CLINICAL: 75-year old female for bilateral screening mammogram. Tyrer-Cuzick lifetime risk of 2.9%. No personal or first-degree family history of breast cancer. PRIOR EXAMS 03/08/2024, 02/24/2023, 02/07/2023, 12/30/2021, MAMMOGRAPHY TECHNIQUE: 2D and 3D (tomosynthesis) digital mammographic views obtained, with additional images as needed for full coverage. Current study was also evaluated with a Computer Aided Detection (CAD) system. DENSITY B. There are scattered areas of fibroglandular density. MAMMOGRAPHY FINDINGS Bilateral: Benign-appearing calcifications noted. There are no suspicious masses, calcifications, or other findings in the breast. IMPRESSION: * No evidence of malignancy with benign findings. RECOMMENDATIONS Bilateral * Annual screening mammography. OVERALL ASSESSMENT CATEGORY BI-RADS-2: Benign. The [employer] recommends annual screening mammography beginning at age 40 for women with average risk of breast cancer. ELECTRONICALLY SIGNED: Bassam Sotomayor M.D. on 03/20/2025 at 07:19:58 AM PT Interpreting Station ID: [id number]
== END ==
LOC: MAMMO 15:03
PROVIDERS: PCP Family Medicine; Referring Provider Family Medicine; Visit Provider Family Medicine
DX: Z12.31 Encounter for screening mammogram for malignant neoplasm of breast (principal)
CPT/HCPCS: 77063; 77067

== ENCOUNTER 2025-04-04 12:22 | Emergency (ER) | payer MEDICARE, OTHER, SELFPAY ==
[2025-04-04 12:48] VITALS: BP 191/86; PULSE 80; RESP 18; TEMP 36.4; O2SAT 99; BMI 29.7
[2025-04-04 12:56] VITALS: BMI 29.7
--- NOTE | 2025-04-04 13:00 | ED_ITS ---
HPI - Fall General Chief Complaint: Fall Stated Complaint: Fell 2 days ago head pain no blood thinners Time Seen by Provider: 04/04/25 12:58 Source: patient Mode of arrival: Ambulatory History of Present Illness HPI Narrative: 75-year-old F with past medical history significant for type 1 diabetes well controlled throughout her life currently on an insulin pump, hypertension, hyperlipidemia, no cardiac or stroke history, presenting 3 days after a fall that she did not remember. Patient states the last thing she remembers she was standing on the sink, woke up in her bed and had some abrasions and musculoskeletal cervical pain, the shower curtain was torn off. Related Data Home Medications ?Medication ?Instructions ?Recorded ?Confirmed aspirin 81 mg tablet,delayed 81 mg PO QDAY ##0 8 02/07/25 release latanoprost 0.005 % eye drops 1 drp OPHTH HS ##0 06/0102/07/25 (Xalatan) loratadine-pseudoephedrine ER 10 1 tab PO QDAYP PRN Al lergic 06/01/17 02/07/25 mg-240 mg tablet,extended Symptoms ##0 [id number] (Claritin-D 24 Hour) multivitamin See Rx Instructions PO DAILY 11/16/17 02/07/25 Calcium Gummies See Rx Instructions .Route . COMPLEX 08/21/18 02/07/25 cholecalciferol (vitamin D3) 50 50 mcg PO BID 02/06/21 02/07/25 mcg (2,000 unit) capsule insulin glargine 100 unit/mL (3 25 unit SUBCUT DAILY P RN in case 09/02/21 02/07/25 mL) subcutaneous pen (Basaglar of insulin pump failure KwikPen U-100 Insulin) Previous Rx's ?Medication ?Instructions ?Recorded omeprazole 20 mg tablet,delayed 20 mg PO BID #60 tabs 04/13/21 release Contour Next Test Strips #600 ea 05/06/21 blood-glucose transmitter (Dexcom #3 ea 07/08/21 G6 Transmitter device) insulin aspart U-100 100 unit/mL 1 sliding scale dose SUBCUT 08/03/21 subcutaneous solution (Novolog .CONTINUOUS NAME BRAND ONLY, NO U-100 Insulin aspart) ASPART #200 mL blood-glucose sensor (Dexcom G6 #9 ea 11/30/21 Sensor device) glycerin-witch brian 12.5 %-50 % 1 pad topical BID-QID PRN anal 08/04/23 topical pads pain #40 ea calcitonin (salmon) 200 See Rx Instructions .Route 0 08/09/24 unit/actuation nasal spray .COMPLEX #3.7 mL cholecalciferol (vitamin D3) 1,250 1,250 mcg PO QWEEK #14 caps 09/06/24 mcg (50,000 unit) capsule cholecalciferol (vitamin D3) 25 25 mcg PO DAILY #60 mL 09/06/24 mcg/drop (1,000 unit/drop) oral drops atorvastatin 40 mg tablet See Rx Instructions .Route 0 12/12/24 .COMPLEX #90 tabs lisinopril 40 mg tablet 40 mg PO ONCE PM #90 tabs sodium,potassium,mag sulfates 17.5 See Rx Instructions PO .COMPLEX 04/01/25 gram-3.13 gram-1.6 gram oral soln #354 mL (Suprep Bowel Prep Kit) Allergies Allergy/AdvReac Type Severity Reaction Status Date / Time amoxicillin (AMOXICILLIN) Allergy Severe SWELLING Verified 04/04/25 12:51 IN LIPS AND MOUTH citalopram AdvReac Intermediate Diarrhea Verified 04/04/25 12:51 aspirin (ASPIRIN) AdvReac Mild (HIGH Verified 04/04/25 12:51 DOSES) HIVES Review of Systems Review of Systems ROS Unobtainable: All systems reviewed & are unremarkable except as noted in HPI and below Patient History Medical History Cancer, skin, squamous cell Anal or rectal pain Hyperlipidemia due to type 1 diabetes mellitus Microalbuminuria Hypothyroidism Lower extremity edema Lumbar back pain Caregiver role strain Anxiety Depression Fracture of distal phalanx of great toe Seborrheic keratosis Neck pain Muscle spasm Stressful life events affecting family and household Pneumonia (2010) Allergic rhinitis (Unknown) Abnormal chest x-ray (2015) Osteopenia (2010) History of trigger finger (~2008) Measles (~1958) Mumps (~1959) Hepatitis B (1972) Diabetic retinopathy (2007) Glaucoma (1984) Recurrent sinusitis (Unknown) Uterine fibroid (1994) Mild acid reflux (2005) Colon polyps (2004) Diverticular disease (2015) Hemorrhoids (1972) Type 1 diabetes (1977) Hypertension (~1999) Lung nodule (06/13/17) Surgical History Status post hysterectomy Status post tubal ligation Family History Father History of diabetes mellitus, type I Mother History of diabetes mellitus, type II History of heart disease Sister History of diabetes mellitus, type II Grandfather No problems noted. Grandmother No problems noted. Grandmother No problems noted. Social History household members: spouse Smoking Status: Never smoker second hand exposure: No alcohol intake: current substance use type: does not use Smoking Status: Never smoker alcohol intake frequency: holidays/special occasions only Exam Initial Vital Signs Initial Vital Signs: Vital Signs Temperature 97.6 F 04/04/25 12:48 Pulse Rate 80 04/04/25 12:48 Respiratory Rate 18 04/04/25 12:48 Blood Pressure 191/86 H 04/04/25 12:48 Pulse Oximetry 99 04/04/25 12:48 Oxygen Delivery Method Room Air 04/04/25 12:48 Course Orders Ordered: ED Orders 04/04/25 12:55 EKG-12 Lead Stat 04/04/25 13:25 CT head/brain wo con Stat Discontinued Medications Morphine Sulfate (Morphine 4 Mg/Ml Inj) 2 mg IV NOW ONE Stop: 04/04/25 13:30 Last Admin: 04/04/25 13:58 Dose: 2 mg Documented By: JERROD Ondansetron HCl (Ondansetron 4 Mg/2 Ml Inj) 4 mg IV NOW ONE Stop: 04/04/25 13:30 Last Admin: 04/04/25 13:58 Dose: 4 mg Documented By: JERROD Vital Signs Vital signs: Vital Signs - 8 hr 04/04/25 12:48 04/04/25 14:44 Temperature 97.6 F Pulse Rate 80 79 Respiratory Rate 18 16 Blood Pressure 191/86 H 163/79 H Pulse Oximetry 99 96 Oxygen Delivery Method Room Air Room Air MDM - Fall MDM Narrative Medical decision making narrative: Pt presents with blunt trauma. CXR considered given possibility of PTX/pulmonary contusion/rib fx, however, deferred due to reassuring history and physical exam. CT brain to r/o intracranial hemorrhage/injury/skull fracture, CT C-spine considered to r/o C-spine fx/dislocation/injury, however, deferred due to reassuring history and physical exam. CT ab/pelvis/chest considered to r/o intra-abdominal/intrathoracic injury including pulmonary contusion/PTX/renal injury/colon injury/liver injury/spleen injury, etc. however, deferred due to reassuring history and physical exam. Labs considered to r/o severe anemia, electrolyte abnormality (including hypokalemia, hyperkalemia, hypernatremia, hyponatremia, hyperglycemia, hypoglycemia, etc), thrombocytopenia. However, deferred due to reassuring history and physical exam EKG performed in consideration of ACS or arrhythmia. EKG and CT head unremarkable. Patient has a insulin pump that shows that she had several low blood sugar alerts at approximately the time of the incident, and she said this is very similar to previous hypoglycemic episodes. Patient is stable for discharge to follow up with her block cleaner. Discharge Plan Departure Patient Disposition: Home Clinical Impression: Acute headache, Syncope and collapse Instructions: DI for Hypoglycemia Activity Restrictions/Additional Instructions: Please return if you have any signs of serious illness including confusion, passing out, nausea, vomiting, or any other concern. Please purchase beyo-zce-zsaookl arnica for pain relief and take along with 1000 mg of Tylenol every 4 hours until your pain is under control. Decrease your insulin given by 25% until you see your block cleaner. Vuelve inmediatamente a Urgencias si ud tiene debilidad de los musculos, fiebre, desmayo, o cualquier otra caren. Prescriptions: No Action multivitamin tablet,chewable See Rx Instructions PO DAILY Patient Comments: 2 gummies (with Vitamin D3) by mouth once daily. PO DAILY; Rx Instructions: 2 gummies (with Vitamin D3) by mouth once daily. PO DAILY; cholecalciferol (vitamin D3) 1,250 mcg (50,000 unit) capsule 1,250 mcg PO QWEEK Qty: 14 0RF Rx Instructions: then start 1000 IU daily cholecalciferol (vitamin D3) 25 mcg/drop ( 1,000 unit/drop) drops 25 mcg PO DAILY Qty: 60 2RF aspirin 81 MG tablet,delayed release (DR/EC) 81 mg PO QDAY Qty: 0 latanoprost [Xalatan] 0.005 % drops 1 drp OPHTH HS Qty: 0 loratadine-pseudoephedrine [Claritin-D 24 Hour] 10 MG/240 MG tablet extended release 24 hr 1 tab PO QDAYP PRN (Reason: Allergic Symptoms) Qty: 0 (DME) Contour Next Test Strips See Rx Instructions .Route .MEDSUPPLY Qty: 600 0RF Rx Instructions: Test blood 5x/day and as needed (DME) Dexcom G6 Sensor Device See Rx Instructions .ROUTE .COMPLEX Qty: 9 3RF Dose Instruction: WEAR FOR 10 DAYS AND REPLACE DIRECTED Rx Instructions: WEAR FOR 10 DAYS AND REPLACE DIRECTED calcitonin (salmon) 200 unit/actuation spray,non-aerosol See Rx Instructions .ROUTE .COMPLEX Qty: 3.7 3RF Dose Instruction: instill 1 spray INTO ALTERNATING NOSTRILS ONCE DAILY Rx Instructions: instill 1 spray INTO ALTERNATING NOSTRILS ONCE DAILY atorvastatin 40 mg tablet See Rx Instructions .ROUTE .COMPLEX Qty: 90 3RF Dose Instruction: take 1 tablet by mouth at bedtime Rx Instructions: take 1 tablet by mouth at bedtime lisinopril 40 mg tablet 40 mg PO ONCE PM Qty: 90 3RF sodium,potassium,mag sulfates [Suprep Bowel Prep Kit] 17.5-3.13-1.6 gram recon soln See Rx Instructions PO .COMPLEX Qty: 354 0RF Rx Instructions: take as directed by provider Calcium Gummies See Rx Instructions .ROUTE .COMPLEX Patient Comments: 3 gummies PO QDAY Rx Instructions: 3 gummies PO QDAY cholecalciferol (vitamin D3) 50 mcg (2,000 unit) capsule 50 mcg PO BID omeprazole 20 mg tablet,delayed release (DR/EC) 20 mg PO BID Qty: 60 1RF Rx Instructions: Take 1 tab twice per day insulin aspart U-100 [Novolog U-100 Insulin aspart] 100 unit/mL solution 1 sliding scale dose SUBCUT .CONTINUOUS Qty: 200 11RF Rx Instructions: 1.0-1.3u/BASAL RATE/HOUR, BOLUS PRIOR TO MEALS PRESCRIBED BY ENDOCRINOLGY (DME) Dexcom G6 Transmitter Device See Rx Instructions .Route Qty: 3 0RF Rx Instructions: Use with the Dexcom 6 Sensors, replace every 30 days Basaglar KwikPen U-100 Insulin 100 unit/mL (3 mL) insulin pen 25 unit SUBCUT DAILY PRN (Reason: in case of insulin pump failure) Rx Instructions: Per Dr. Justo Wise glycerin-yolanda gibsonel 12.5-50 % pads, medicated 1 pad topical BID-QID PRN (Reason: anal pain) Qty: 40 3RF Referrals: Jannet Salazar MD [Primary Care Provider, Family Practice] Stand Alone Forms: Patient Portal/API
--- NOTE | 2025-04-04 13:25 | DI.CT.S_ITS ---
PROCEDURE: CT HEAD/BRAIN WO CON INDICATIONS: Head strike TECHNIQUE: Noncontrast 4.5 mm thick angled axial sections acquired from the foramen magnum to the vertex, with coronal and sagittal reformats. For radiation dose reduction, the following was used: automated exposure control, adjustment of mA and/or kV according to patient size. COMPARISON: [facility], CT, CT HEAD/BRAIN WO CON, 08/20/2018, 3:15. FINDINGS: Image quality: Diagnostic. CSF spaces: Basal cisterns are patent. No extra-axial fluid collections. The ventricles are symmetric in size and shape. Brain: No acute intracranial hemorrhage or mass effect. There is cerebral volume loss, with resultant ventricular and sulcal prominence. There are periventricular and deep white matter chronic small vessel ischemic changes. There is intracranial internal carotid artery atherosclerosis. Skull and face: Calvarium and visualized facial bones appear intact, without suspicious lesions. Sinuses: Small mucous retention cyst in the right sphenoid sinus. Mild partial opacification of the ethmoid air cells. Visualized sinuses and mastoids are clear. IMPRESSION: No acute intracranial pathology. Approved by: Ba Baltazar M.D. on 04/04/2025 at 13:50
[2025-04-04] MEDS: ONDANSETRON 4 MG/2 ML INJ IV (13:58)
[2025-04-04] MEDS: MORPHINE 4 MG/ML INJ 2 MG IV (13:58)
[2025-04-04 14:44] VITALS: BP 163/79; PULSE 79; RESP 16; O2SAT 96
--- NOTE | 2025-04-04 14:56 | EKG_ITS ---
[facility] [address], [place] [address] Test Date: 2025-04-04 Pat Name: Myla Mercado Department: [facility] Room: Gender: Female [employer] Manager: SHANTEL : 1950 Requested By: Order Number: [id number] Reading MD: Alcon Dunn Measurements Intervals [place] Rate: 68 P: 9 VT: 136 QRS: 11 QRSD: 88 T: 68 QT: 406 QTc: 431 Interpretive Statements Normal sinus rhythm Electronically Signed On 04-06-2025 13:02:19 PST by Alcon Dunn
[2025-04-04 16:11] VITALS: BP 197/77; PULSE 78; RESP 16; O2SAT 98
== END 2025-04-04 16:20 | disposition home or self-care (01) ==
PROVIDERS: Emergency Provider Emergency Medicine; PCP Family Medicine
DX: R55 Syncope and collapse (principal); R51.9 Headache, unspecified; M54.2 Cervicalgia; E10.649 Type 1 diabetes mellitus with hypoglycemia without coma; Z96.41 Presence of insulin pump (external) (internal); Z86.79 Personal history of other diseases of the circulatory system
CPT/HCPCS: 36415; 70450; 93005; 96374; 96375; 99284; J2272; J2405